=== PATIENT | female | born 1955 | race Caucasian/White ===

== ENCOUNTER → 2019-03-21 | Outpatient (CLI) | payer MEDICARE, BC ==
[~2019-03-21] MED LIST: CATHETER FLUSH 10 ML SYR IV PRN; HOLD METFORMIN - RECEIVED CONTRAST 20 ML VIAL IV SCH; IOHEXOL 350 MG/ML 100 ML (OMNIPAQUE 350) VIAL IV ONE; NS 100 ML (IVPB) BAG IV ONE
--- NOTE | 2019-03-21 13:06 | Diagnostic Imaging Report ---
PROCEDURE: CT chest with contrast only. TECHNIQUE: Multiple contiguous axial images were obtained through the chest after administration of intravenous contrast. Auto Exposure Controls were utilized during the CT exam to meet ALARA standards for radiation dose reduction. INDICATION: Pulmonary fibrosis and cough. COMPARISON: No prior studies are available for comparison. FINDINGS: No axillary lymphadenopathy is detected. No mediastinal or hilar lymphadenopathy is identified. No pericardial or pleural fluid is detected. There are centrilobular emphysematous changes throughout both lungs. There appear to be some interstitial changes in subpleural locations of bilateral lower lobes, which may represent fibrotic scarring. No parenchymal mass, nodule, or infiltrate is seen. The upper abdomen is unremarkable. IMPRESSION: 1. Centrilobular emphysematous changes with basilar interstitial changes perhaps owing to scarring. No parenchymal mass or thoracic lymphadenopathy is detected. Dictated by: Dictated on workstation # [id number]
== END ==
LOC: RAD 12:13
PROVIDERS: ATTEND Nurse Practitioner Family
DX: J43.2 Centrilobular emphysema (principal); J30.9 Allergic rhinitis, unspecified; J84.10 Pulmonary fibrosis, unspecified; F17.201 Nicotine dependence, unspecified, in remission
CPT/HCPCS: 71260

== ENCOUNTER → 2019-09-06 | Outpatient (CLI) | payer MEDICARE, BC ==
--- NOTE | 2019-09-23 13:14 | Diagnostic Imaging Report ---
INDICATION: Routine screening. COMPARISON: Comparison is made with prior mammogram of 07/20/2015. 2-D and 3-D bilateral screening mammography was performed. The current study was also evaluated with a Computer Aided Detection (CAD) system. 3-D tomosynthesis was also performed and reviewed. FINDINGS: Scattered fibroglandular densities are identified bilaterally. Overall parenchymal pattern is stable. Slightly nodular density in the outer left breast at mid to posterior depth appears to be stable. There are benign calcifications bilaterally. No spiculated mass or malignant-appearing microcalcifications are seen. Axillae are unremarkable. IMPRESSION: No mammographic features suspicious for malignancy are identified. ACR BI-RADS Category 2: Benign findings. Result letter will be mailed to the patient. Note: At least 10% of breast cancer is not imaged by mammography. Dictated by: Dictated on workstation # [id number]
== END ==
LOC: RAD 15:08
PROVIDERS: ATTEND Internal Medicine
DX: Z12.31 Encounter for screening mammogram for malignant neoplasm of breast (principal)
CPT/HCPCS: 77067

== ENCOUNTER 2023-06-08 12:07 | Inpatient (IN) | payer MEDICARE, BC ==
[~2023-06-08] VITALS: Ht 170.1 cm; Wt 87.2 kg
[~2023-06-08 12:07] MED LIST changes: +ACETAMINOPHEN 325 MG TABLET PO PRN; +ALPRAZolam 0.25 MG TABLET PO PRN; +BISACODYL 10 MG SUPPOSITORY PR PRN; +CALCIUM CARBONATE 500 MG CHEW TABLET PO PRN; -CATHETER FLUSH 10 ML SYR IV PRN; +DOCUSATE SODIUM 100 MG CAPSULE PO PRN; -HOLD METFORMIN - RECEIVED CONTRAST 20 ML VIAL IV SCH; -IOHEXOL 350 MG/ML 100 ML (OMNIPAQUE 350) VIAL IV ONE; +LACTULOSE SYRUP 10GM/15ML 30ML UDC PO PRN; +LOPERAMIDE 2 MG (IMODIUM) TABLET PO PRN; -NS 100 ML (IVPB) BAG IV ONE; +ONDANSETRON 4 MG (ZOFRAN) ORAL DISSOLVE TAB PO PRN; +Sodium Phosphate/Sodium Biphosphate ADULT enema PR PRN; +diphenhydrAMINE 25 MG TABLET PO PRN; +guaiFENesin/CODEINE 10ML UDC PO PRN
[2023-06-08 12:45] VITALS: BP 122/57
--- NOTE | 2023-06-08 13:27 | Physical Therapy Evaluation ---
PT Evaluation-General Medical Diagnosis Admission Date Jun 08, 2023 at 13:06 Medical Diagnosis: Pulmonary Fibrosis, AHRF Onset Date: May 28, 2023 Therapy Diagnosis Therapy Diagnosis: Decreased functional activity tolerance; Decreased strength Precautions Precautions/Isolations: Fall Prevention, Standard Precautions Weight Bear Status Right Lower Extremity: Right Full Weight Bearing Left Lower Extremity: Left Full Weight Bearing Referral Physician: Kimberley Reason for Referral: Evaluation/Treatment Medical History Additional Medical History AHRF, LLL PNA s/p meropenem and azithromycin Current History Pt admitted to hospital on 05/28/23 for SOB and low O2 levels; Admitted to ARU on 06/08/23 Reviewed History: Yes Social History Home: Single Level Current Living Status: Significant Other Entry Into Home: Stairs Without Railing PT Steps Into Home: 2 PT Steps Inside Home: 3 Pt lives in a single level home with her , with 2 steps to enter with no HR and 3 steps in the home. Tub shower, regular toilet, no GBs, no SC Prior Prior Level of Function SCALE: Activities may be completed with or without assistive devices. 1-Yrvhdhxinv-yiamirl completes the activity by him/herself with no assistance from a helper. 5-Set-up or Clean-up Assistance-helper sets up or cleans up; patient completes activity. [place] assists only prior to or following the activity. 4-Supervision or Touching Assistance-helper provides verbal cues and/or touching/steadying and/or contact guard assistance as patient completes activity. Assistance may be provided throughout the activity or intermittently. 3-Partial/Moderate Assistance-helper does LESS THAN HALF the effort. [place] lifts, holds or supports trunk or limbs, but provides less than half the effort. 2-Substantial/Maximal Assistance-helper does MORE THAN HALF the effort. [place] lifts or holds trunk or limbs and provides more than half the effort. 8-Hjwfnjnzi-yazzxl does ALL the effort. Patient does none of the effort to complete the activity. Or, the assistance of 2 or more helpers is required for the patient to complete the activity. If activity was not attempted, code reason: 7-Patient Refused. 9-Not Applicable-not attempted and the patient did not perform the activity before the current illness, exacerbation or injury. 10-Not Attempted due to Environmental Limitations-(lack of equipment, weather restraints, etc.). 88-Not Attempted due to Medical Conditions or Safety Concerns. Bed Mobility: 6 Transfers (B,C,W/C): 6 Gait: 6 Stairs: 6 Wheelchair Mobility: 9 Indoor Mobility (Ambulation): Independent Stairs: Independent Prior Devices Use: None At PLOF, pt was Ind with no AD, driving, cooking, cleaning. No AD at home. 1-3L O2 at PLOF PT Evaluation-Current Subjective Pt is agreeable to PT Pain Numeric Pain Scale: 8 Location Body Site: Chest Section J - Health Conditions 1. Rarely or not at all 2. Occasionally 3. Frequently 4. Almost constantly 8. Unable to answer Pain Effect on Sleep: 3 Pain Interference with Therapy: 3 Pain Interference w/Day-to-Day: 3 Pt/Family Goals Safely return home Objective Patient Orientation: Person, Place, Time, Situation Attachments: Oxygen (10L ) ROM/Strength ROM Upper Extremities See OT eval ROM Lower Extremities WFL Strength Upper Extremities See OT note Strength Lower Extremities B LE MMT = 4-/5 grossly Integumentary/Posture Integumentary See nurses note Bowel Incontinence: No Bladder Incontinence: No Sensory Vision: Wears Glasses Hearing: Functional Hand Dominance: Right Sensation Right Upper Extremit: Intact Sensation Left Upper Extremity: Intact Sensation Right Lower Extremit: Intact Sensation Left Lower Extremity: Intact Transfers Roll Left & Right (QC): 4 (SBA ) Sit to Lying (QC): 4 (SBA ) Lying to Sitting/Side of Bed(Q: 4 (SBA ) Sit to Stand (QC): 4 (SBA ) Chair/Zpw-jh-Luyvu Xfer(QC): 4 (SBA ) Toilet Transfer (QC): 4 (SBA ) Car Transfer (QC): 4 (SBA ) Gait Does the Patient Walk?: Yes Mode of Locomotion: Walk Anticipated Mode of Locomotion: Walk Walk 10 feet (QC): 4 (CGA) Walk 50 ft with 2 Turns(QC): 4 (CGA ) Walk 150 ft (QC): 88 (O2 dropped below 80% on 10L ) Walking 10ft/uneven surface-QC: 4 (CGA ) Gait Assistive Device: None Wheelchair Training Does the Pt Use a Wheelchair?: No Wheel 50 ft with 2 turns (QC): 9 Wheel 150 ft (QC): 9 Type of Wheelchair: N/A Stairs #of Steps: 5 1 Step (curb) (QC): 4 (CGA ) 4 Steps (QC): 4 (CGA ) 12 Steps (QC): 88 Balance Sitting Static: Normal Sitting Dynamic: Normal Standing Static: Good Standing Dynamic: Good Picking up an Object (QC): 4 (CGA/SBA ) Special Test Comments KU standing balance score = 4/5 (goal = 5/5) Treatment PT eval completed Assessment/Needs Pt tolerated PT well, but O2 dropped to 75% with walking/activity (rebounded quickly after a seated rest-break) Rehab Potential: Good Post Rehab Potential-Barriers: SOB; Endurance Equipment Needs SC, GB PT Dish Room Worker Goals Dish Room Worker Goals PT Dish Room Worker Goals Time Frame: Jun 22, 2023 Roll Left to Right (QC): 6 (Pt will be Ind with functional mobility, in order to safely return home with spouse. ) Sit to Lying (QC): 6 (Pt will be Ind with functional mobility, in order to safely return home with spouse. ) Lying-Sitting on Side/Bed(QC): 6 (Pt will be Ind with functional mobility, in order to safely return home with spouse. ) Sit to Stand (QC): 6 (Pt will be Ind with functional mobility, in order to safely return home with spouse. ) Chair/Eis-hx-Kcjxm Xfer(QC): 6 (Pt will be Ind with functional mobility, in order to safely return home with spouse. ) Toilet/Commode Transfer (QC): 6 (Pt will be Ind with functional mobility, in order to safely return home with spouse. ) Car Transfer (QC): 6 (Pt will be Ind with functional mobility, in order to safely return home with spouse. ) Does the Patient Walk: Yes Walk 10 feet (QC): 6 (Pt will be Ind with functional mobility, in order to safely return home with spouse. ) Walk 10ft-Uneven Surface(QC): 6 (Pt will be Ind with functional mobility, in order to safely return home with spouse. ) Walk 50ft with 2 Turns (QC): 6 (Pt will be Ind with functional mobility, in order to safely return home with spouse. ) Walk 150 ft (QC): 6 (Pt will be Ind with functional mobility, in order to safe ly return home with spouse. ) Does the Pt use WC or Scooter?: No Wheel 50 feet with 2 turns (QC: 9 Type: N/A Wheel 150 feet: 9 Type: N/A 1 Step (curb) (QC): 6 (Pt will be Ind with functional mobility, in order to safely return home with spouse. ) 4 Steps (QC): 6 (Pt will be Ind with functional mobility, in order to safely return home with spouse. ) 12 Steps (QC): 6 (Pt will be Ind with functional mobility, in order to safely return home with spouse. ) Picking up an Object (QC): 6 (Pt will be Ind with functional mobility, in order to safely return home with spouse. ) KU standing balance goal = 5/5 PT Plan Problem List Problem List: Activity Tolerance, Functional Strength, Safety, Balance, Gait, Transfer, Bed Mobility Treatment/Plan Treatment Plan: Continue Plan of Care Treatment Plan: Bed Mobility, Concurrent Therapy, Education, Functional A ctivity Wil, Functional Strength, Group Therapy, Gait, Safety, Therapeutic Exercise, Transfers Treatment Duration: Jun 22, 2023 Frequency: At least 5 of 7 days/Wk (IRF) Estimated Hrs Per Day: 2 hours per day Patient and/or Family Agrees t: Yes Safety Risks/Education Patient Education: Gait Training, Transfer Techniques, Steps, Safety Issues Teaching Recipient: Patient Teaching Methods: Demonstration, Discussion Response to Teaching: Verbalize Understanding, Return Demonstration, Reinforcement Needed Discharge Recommendations Therapy Discharge Recommendati: Home & Family Equpiment Recommendations-D/C: Shower Chair Discharge Status/Home Program Cont per POC Barriers to Progress SOB; Endurance Target Placement Home with spouse Time Time In: 1310 Time Out: 1325 DATE: Jun 08, 2023 Total Billed Treatment Time: 15 Total Billed Treatment 15 min CASSY MOORE PT Jun 08, 2023 13:27
[2023-06-08] MEDS ORDERED: MULT-1136 PO (13:55)
[2023-06-08] MEDS ORDERED: MONT-47 PO (13:55)
[2023-06-08] MEDS ORDERED: ALB0.5V INH ×2 (13:55)
[2023-06-08] MEDS ORDERED: IBUP-1773 PO (13:55)
[2023-06-08] MEDS ORDERED: CYAN-41 PO (13:55)
[2023-06-08] MEDS ORDERED: ENOX40DI8 SQ (13:55)
[2023-06-08] MEDS ORDERED: ACET325T38 PO (13:55)
[2023-06-08] MEDS ORDERED: GUAI5SYR PO (13:55)
[2023-06-08] MEDS ORDERED: PRD20T PO (13:55)
[2023-06-08] MEDS ORDERED: ALPR0.5T7 PO (13:55)
[2023-06-08] MEDS ORDERED: FLUC100T10 PO (13:55)
[2023-06-08] MEDS ORDERED: NYST1000 PO (13:55)
[2023-06-08] MEDS ORDERED: ATOR20TA66 PO (13:55)
[2023-06-08] MEDS ORDERED: CHOL500050 PO (13:55)
[2023-06-08] MEDS ORDERED: OMEG100032 PO (13:55)
[2023-06-08] MEDS ORDERED: GUAI600T43 PO (13:55)
[2023-06-08] MEDS ORDERED: LACT-242 PO (13:55)
[2023-06-08] MEDS ORDERED: ONDA2VIA6C IV (13:55)
[2023-06-08] MEDS ORDERED: BACL10TA PO (13:55)
[2023-06-08] MEDS ORDERED: PANT40TA52 PO (13:55)
[2023-06-08] MEDS ORDERED: CARB15DR OU (13:55)
[2023-06-08] MEDS ORDERED: ACHD5005 PO (13:55)
[2023-06-08] MEDS ORDERED: OMEP40CA6 PO (13:55)
[2023-06-08] MEDS ORDERED: SERT-413 PO (13:55)
--- NOTE | 2023-06-08 14:10 | Occupational Therapy Eval ---
OT Evaluation-General/PLF Medical Diagnosis Admission Date Jun 08, 2023 at 13:06 Medical Diagnosis: Pulmonary fibrosis, AHRF Onset Date: May 28, 2023 Therapy Diagnosis Therapy Diagnosis: SOA, low endurance Precautions Precautions/Isolations: Fall Prevention, Standard Precautions Referral Physician: Kimberley Referral Reason: Activity Tolerance, Self Care, Evaluation/Treatment Medical History Additional Medical History LLL, pneumonia Current History PLOF 02 use 1-3 L NC, currently 8-10 L NC w/ith 02 sats activity at 75-93 % at rest Reviewed History: Yes Social History Home: Single Level Current Living Status: Significant Other Entry Into Home: Stairs Without Railing Steps Into Home: 2 Steps Inside Home: 3 ADL-Prior Level of Function SCALE: Activities may be completed with or without assistive devices. 2-Rzfdxderky-pduzbot completes the activity by him/herself with no assistance from a helper. 5-Set-up or Clean-up Assistance-helper sets up or cleans up; patient completes activity. [place] assists only prior to or following the activity. 4-Supervision or Touching Assistance-helper provides verbal cues and/or touching/steadying and/or contact guard assistance as patient completes activity. Assistance may be provided throughout the activity or intermittently. 3-Partial/Moderate Assistance-helper does LESS THAN HALF the effort. [place] lifts, holds or supports trunk or limbs, but provides less than half the effort. 2-Substantial/Maximal Assistance-helper does MORE THAN HALF the effort. [place] lifts or holds trunk or limbs and provides more than half the effort. 9-Sqmyxpkwq-taoltx does ALL the effort. Patient does none of the effort to complete the activity. Or, the assistance of 2 or more helpers is required for the patient to complete the activity. If activity was not attempted, code reason: 7-Patient Refused. 9-Not Applicable-not attempted and the patient did not perform the activity before the current illness, exacerbation or injury. 10-Not Attempted due to Environmental Limitations-(lack of equipment, weather restraints, etc.). 88-Not Attempted due to Medical Conditions or Safety Concerns. 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 Drive Self: Yes OT Current Status Subjective Positively agreeable to OT Pain Numeric Pain Scale: 0-No Pain Mental Status/Objective Patient Orientation: Person, Place, Time, Situation Attachments: Oxygen (8-10 L NC) Current Glasses/Contacts: Yes Hearing Aids: No Dentures/Partials: No Hand Dominance: Right Upper Extremity ROM BUE ROM WNLs Upper Extremity Coordination INTACT Upper Extremity Sensation INTACT Upper Extremity Strength WFLs, does not sustain strength w/ activity d/t SOA ADL-Treatment ADL-Current Monitor 02 levels and 02 feng cart w/ mobility Eating (QC): 6 (Educated to order meals form menu) Oral Hygiene (QC): 5 (SBA standing at lavatory) Shower/Bathe Self (QC): 88 Upper Body Dressing (QC): 5 Lower Body Dressing (QC): 5 On/Off Footwear (QC): 5 Toileting Hygiene (QC): 5 Education OT Patient Education: Correct positioning, Energy conservation, Modified ADL techniques, Progress toward Goal/Update tx plan, Purpose of tx/functional activities, Reviewed precautions, Rehab process, Safety issues, Transfer techniques, Use of adapted equipment Teaching Recipient: Patient Teaching Methods: Demonstration, Discussion Response to Teaching: Verbalize Understanding, Reinforcement Needed BIMS CAM BIMS Expression of Ideas and Wants: Without Difficulty Understanding Verbal Content: Understands Brief Interview/Mental Status: Yes IRF ASIF BIMS: IRF ASIF BIMS Response (Comments) Value Repitition of Three Words Three 3 Recalls Socks Yes, No Cue Required 2 Recalls Blue Yes, No Cue Required 2 Recalls Bed Yes, No Cue Required 2 Year Correct 3 Month Accurate Within 5 Days 2 Day Correct 1 Total 15 Patient Normally Able to Recal: Current Session, Location of own room, Staff Names and faces, That he/she in a [facility] Should Staff Asses. Mental St.: No CAM Mental Status Change/Baseline: 0 Inattention: 0 Disorganized thinkin Altered level of consciousness: 0 OT Short Term Goals Short Term Goals Time Frame: Jun 12, 2023 Eatin Oral hygiene: 6 Putting on/taking off footwear: 6 OT Mcfp Goals Mcfp Goals Time Frame: Jun 16, 2023 Eating (QC): 6 Oral Hygiene (QC): 6 Toileting Hygiene (QC): 6 Shower/Bathe Self (QC): 6 Upper Body Dressing (QC): 6 Lower Body Dressing (QC): 6 On/Off Footwear (QC): 6 1=Demonstrate adherence to instructed precautions during ADL tasks. 2=Patient will verbalize/demonstrate understanding of assistive dev ices/modifications for ADL. 3=Patient will improve strength/tolerance for activity to enable patient to perform ADL's. OT Education/Plan Problem List/Assessment Assessment: Decreased Activ Tolerance Discharge Recommendations Plan/Recommendations: Continue POC Treatment Plan/Plan of Care Treatment,Training & Education: Yes Patient would benefit from OT for education, treatment and training to promote independence in ADL's, mobility, safety and/or upper extremity function for ADL's. Plan of Care: ADL Retraining, Concurrent Therapy, Functional Mobility, Group Exercise/Act as Ind, UE Funct Exercise/Act, UE Neuromus Re-Ed/Coord Treatment Duration: Jun 16, 2023 Frequency: At least 5 of 7 days/Wk (IRF) Estimated Hrs Per Day: 1 hour per day Agreement: Yes Rehab Potential: Good UP in recliner ordering meal Time Start Time: 13:25 Stop Time: 14:00 DATE: Jun 08, 2023 Total Time Billed (hr/min): 35 Billed Treatment Time EVM 35 min NENA CAMARA OT Jun 08, 2023 14:10
--- NOTE | 2023-06-08 14:53 | PM&R Post Admission Assessment ---
PM&R HP Date of Visit: Jun 08, 2023 Time of Visit: 13:30 History of Present Illness Chief complaint: Debility from pulmonary fibrosis and exacerbation of COPD HPI: This is a 68-year-old female clinic patient of [facility] with a history of pulmonary fibrosis managed at maintained on oxygen supplement at home who presents from [facility] swing bed following a 7-day hospital course on Vapotherm of 35 L at 65% due to exacerbation of COPD due to pneumonia. She completed meropenem and azithromycin at [facility] [place]. She remains on 8 L of oxygen so we will have a goal of decreasing oxygen to baseline home dose and decreasing steroids. CC: Acute on chronic hypoxic respiratory failure & respiratory distress HPI: 68-year-old female patient presents to rehab with history of pulmonary fibrosis and pulmonary HTN. Woke up coughing two weekends ago and was having trouble with keeping O2 saturation up. Was diagnosed with left sided pneumonia and has been treated with antibiotics and steroids. Patient has been experiencing back pain due to the pneumonia and coughing. Breathing is still difficult but patient is determined to get better. PMH: Pulmonary fibrosis. Left humerus fracture following a fall. Hyperlipidemia. GERD. Depression. Vitamin D deficiency. Fatty liver. PSH: Appendectomy, cholecystectomy, bowel resection. ALL: Penicillins, sulfa, cephalexin, ciprofloxacin, clindamycin, demeclocycline, erythromycin, lidocaine, meperidine, morphine, sulfamethoxazole, terbinafine, trimethoprim. MED: Tagamet 200 mg daily, Silvina 180 mg daily, Prednisone 10 mg daily, Proair two puffs q four prn, Fish oil, [place]-3 fatty acids daily, multivitamin daily, vitamin D 1,000 units daily, vitamin B12 1,000 mcg daily, Omeprazole 20 mg BID daily, Atorvastatin 20 mg daily, Sertraline 50 mg daily, Anoro Ellipta 62.5-25 daily, Montelukast 10 mg daily. SH: Former smoker, no alcohol. 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 FH: Grandmother had pulmonary fibrosis, brother had basal cell carcinoma. ROS Constitutional: No weight loss, no chills HEENT: No ear pain, no neck pain Resp: Shortness of breath, cough CV: No chest pain, no palpitations GI: No constipation, no abd pain : No dysuria, no polyuria MSK: Back pain, no joint pain Psych/neuro: No unsteady gait, no anxiety Exam General: Shortness of breath, chronically ill, not in acute distress. Pleasant and very cooperative. HEENT: No lymphadenopathy of mandibular, submental, and anterior cervical lymph nodes bilaterally. Bilateral pupils with intact light reflex. No icterus or conjunctivitis. Moist mucous membranes. No cobblestoning of posterior pharynx. Neck: Normal range of motion, no rigidity, no pain, no masses CV: Regular rate and rhythm, no murmurs or gallops. No elevated JVP. No displacement or enlargement of PMI. No carotid bruits. Carotid pulse +2 bilaterally. No edema. Normal capillary refill. Resp: Lungs clear to auscultation bilaterally. No rales, rhonchi, or wheezing. No usage of accessory muscles. No cyanosis or clubbing. Abd: Normoactive bowel sounds and nontender in all four quadrants. No rebound tenderness. MSK: Posterior back pain that is tender to palpation on the left side. Tenderness runs from left T9-L4 paraspinal muscles and radiates out to the left. Extrem: Normal range of motion and no tenderness. Radial pulse and posterior tibial pulse +2 bilaterally. Neuro: Oriented & alert times 4. Cranial nerves 2-12 intact bilaterally. Rapid alternating hand movements performed adequately. No abnormal gait. Assessment Acute on chronic hypoxic respiratory failure & respiratory distress on 15 liters of oxygen Left lower lobe pneumonia Elevated lactic acid due to hypoxia & respiratory distress Leukocytosis Pulmonary fibrosis Left humerus fracture following fall Hyperlipidemia Depression Vitamin D deficiency Fatty liver Pulmonary HTN on echocardiogram, 50-55 Plan Continue PT & OT Continue to titrate prednisone slowly Supportive care Monitor closely Past Oqhftrm-Cgemux-Qfyalo Hx Past Med/Social Hx: Reviewed Nursing Past Med/Soc Hx, Reviewed and Corrections made Patient Social History Marrital Status: Employed/Student: retired Alcohol Use: Denies Use Smoking Status: Former Smoker Past Medical History Respiratory: COPD, Emphysema, Pneumonia Currently Using CPAP: No Currently Using BIPAP: No Cardiac: High Cholesterol, Hypertension Gastrointestinal: Gastroesophageal Reflux Musculoskeletal: Arthritis Prior Level of Function Bed Mobility: 6 Transfers: 6 Gait: 6 Stairs: 6 Wheelchair Mobility: 9 Indoor Mobility (Ambulation): Independent Stairs: Independent Prior Devices Use: None Self Care: Independent Functional Cognition: Independent 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 Drive Self: Yes Current Level of Fuctioning Roll Left to Right: 4 (SBA ) Sit to Lyin (SBA ) Lying to Sitting/Side of Bed: 4 (SBA ) Sit to Stand: 4 (SBA ) Chair/Lvg-eo-Cnqfu Xfer: 4 (SBA ) Does the Pt Use a Wheelchair: No Wheel 50 ft with 2 turns: 9 Wheel 150 ft: 9 Type of Wheelchair: N/A Eatin (Educated to order meals form menu) Oral Hygiene: 5 (SBA standing at lavatory) Shower/Bathe Self: 88 Upper Body Dressin Lower Body Dressin On/Off Footwear: 5 Toileting Hygiene: 5 PM&R Allergy/Meds/Data Review Allergies Coded Allergies: Penicillins (Verified Allergy, Unknown, 06/08/23) Sulfa (Sulfonamide Antibiotics) (Verified Allergy, Unknown, 06/08/23) cephalexin (Verified Allergy, Unknown, 06/08/23) ciprofloxacin (Verified Allergy, Unknown, 06/08/23) clindamycin (Verified Allergy, Unknown, 06/08/23) demeclocycline (Verified Allergy, Unknown, 06/08/23) erythromycin base (Verified Allergy, Unknown, 06/08/23) lidocaine (Verified Allergy, Unknown, 06/08/23) meperidine (Verified Allergy, Unknown, 06/08/23) morphine (Verified Allergy, Unknown, 06/08/23) sulfamethoxazole (Verified Allergy, Unknown, 06/08/23) terbinafine (Verified Allergy, Unknown, 06/08/23) trimethoprim (Verified Allergy, Unknown, 06/08/23) Home Medications Scheduled Albuterol Sulfate (Albuterol Sulfate), 2.5 MG INH QID, (Reported) Atorvastatin Calcium (Atorvastatin Calcium), 20 MG PO DAILY, (Reported) Cholecalciferol (Vitamin D3) (Vitamin D3), 125 MCG PO DAILY, (Reported) Cyanocobalamin (Vitamin B-12) (Vitamin B-12), 1,000 MCG PO DAILY, (Reported) Enoxaparin Sodium (Enoxaparin Sodium), 40 MG SQ DAILY, (Reported) Fluconazole (Fluconazole), 100 MG PO DAILY, (Reported) Guaifenesin (Mucinex), 600 MG PO BID, (Reported) Lactobacillus Acidophilus (Acidophilus Probiotic), 1 EACH PO QID, (Reported) Montelukast Sodium (Singulair), 10 MG PO DAILY, (Reported) Multivitamin (Multivitamin), 1 EACH PO DAILY, (Reported) Nystatin (Nystatin), 1 ML PO QID, (Reported) [place]-3/Dha/Epa/Fish Oil (Fish Oil 1,000 mg Softgel), 1,000 MG PO DAILY, (Reported) Omeprazole (Omeprazole), 40 MG PO DAILY, (Reported) Pantoprazole Sodium (Pantoprazole Sodium), 40 MG PO DAILY, (Reported) Prednisone (Prednisone), 60 MG PO DAILY, (Reported) Sertraline HCl (Sertraline HCl), 50 MG PO HS, (Reported) Scheduled PRN Acetaminophen (Tylenol), 650 MG PO Q6H PRN for PAIN-MILD (1-4), (Reported) Albuterol Sulfate (Albuterol Sulfate), 2.5 MG INH Q4H PRN for SHORTNESS OF BREATH, (Reported) Alprazolam (Alprazolam), 0.5 MG PO EVERY 3 HOUR PRN for ANXIETY, (Reported) Baclofen (Baclofen), 10 MG PO Q4H PRN for MUSCLE SPASMS, (Reported) Carboxymethylcellulose Sodium (Refresh Tears), 1 DROP OU QID PRN for DRY EYES, (Reported) Guaifenesin/Dextromethorphan (Guaifenesin Dm Syrup), 5 ML PO Q6H PRN for COUGH, (Reported) Hydrocodone/Acetaminophen (Hydrocodone-Acetamin 5-325 mg), 1 TAB PO Q6H PRN for PAIN-MODERATE (5-7), (Reported) Ibuprofen (Ibuprofen), 600 MG PO Q6H PRN for PAIN-MILD (1-4), (Reported) Ondansetron HCl (Ondansetron HCl), 4 MG IV Q6H PRN for NAUSEA/VOMITING-1ST LINE, (Reported) Current Medications Current Medications Reviewed Review of Systems Constitutional: see HPI, malaise, weakness EENTM: no symptoms reported Respiratory: dyspnea on exertion, short of breath, wheezing Cardiovascular: no symptoms reported Gastrointestinal: no symptoms reported Genitourinary: no symptoms reported Musculoskeletal: back pain Skin: no symptoms reported Psychiatric/Neurological: Anxiety, Depressed All Other Systems Reviewed Negative Unless Noted: Yes Physical Exam Physical Exam Vital Signs Vital Signs - First Documented 8/3/23 12:45 Temp 36.1 Pulse 61 Resp 20 B/P (MAP) 122/57 (78) Pulse Ox 92 O2 Delivery Nasal Cannula O2 Flow Rate 10.00 Capillary Refill : Height, Weight, BMI Height: '" Weight: lbs. oz. kg; 30.24 BMI Method: General Appearance: No Apparent Distress, WD/WN, Chronically ill Eyes: Bilateral Eye Normal Inspection, Bilateral Eye PERRL HEENT: PERRL/EOMI, Normal ENT Inspection, Pharynx Normal Neck: Full Range of Motion, Normal Inspection, Non Tender, Supple, Carotid Bruit Respiratory: Chest Non Tender, No Accessory Muscle Use, No Respiratory Distress, Decreased Breath Sounds Cardiovascular: Regular Rate, Rhythm, No Edema, No Gallop, No JVD, No Murmur, Normal Peripheral Pulses Gastrointestinal: Normal Bowel Sounds, No Organomegaly, No Pulsatile Mass, Non Tender, Soft Back: Normal Inspection, No CVA Tenderness, No Vertebral Tenderness Extremity: Normal Capillary Refill, Normal Inspection, Normal Range of Motion, Non Tender, No Calf Tenderness, No Pedal Edema Neurologic/Psychiatric: Alert, Oriented x3, Normal 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, 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 Norm as Tested, Abnormal Gait, Depressed Affect, Motor Weakness (Generalized 3/5) Skin: Normal Color, Warm/Dry Lymphatic: No Adenopathy PM&R Medical Assessment & Plan REHAB/MEDICAL ASSESSMENT AND PLAN: REHAB IMPAIRMENT GROUP: Debility following pulmonary failure ETIOLOGIC DIAGNOSIS: pulmonary fibrosis The comorbidities that impact the patients function and/or functional outcome by: severe pulmonary fibrosis and stage, severe weakness from critical illness REHAB PLAN: The patient is being admitted to our comprehensive inpatient rehabilitation facility and can tolerate the intensity of service consisting of at least: 180 minutes of therapy a day, 5 out of 7 days a week Rehab treatment will consist of: PT and OT will focus on regaining function with use of assistive devices in order to gain strength and return back to ambulatory status while weaning oxygen The patient/family has a good understanding of our discharge process and will benefit from an interdisciplinary inpatient rehabilitation program. The patient has potential to make improvement and is in need of at least two of the following multidisciplinary therapies including but not limited to physical, occupational, speech, and prosthetics and orthotics. Additionally the patient will need services from respiratory, nutritional services, wound care, psychology, etc. (Customize this to each patient). Given the patients complex condition and risk of further medical complications, rehabilitation services cannot be safely or effectively provided at a lower level of care such as a halfway facility. BARRIERS TO DISCHARGE: severe hypoxia with exertion ESTIMATED LOS: 7 days DISPOSITION: home with spouse RELEVANT CHANGES SINCE PREADMISSION SCREENING: I have compared the patients medical and functional status at the time of the preadmission screening and there are: no changes PROGNOSIS: fair REHABILITATION GOALS: 1. PT and OT will focus on regaining function with use of assistive devices in order to gain strength and return back to ambulatory status while weaning oxygen All the above goals were reviewed with the patient and he/she is in agreement. By signing this document, I acknowledge that I have personally performed a full physical examination on this patient within 24 hours of admission to this inpatient rehabilitation facility and have determined the patient to be able to tolerate the above course of treatment at an intensive level for a reasonable period of time. I will be completing a detailed individualized Plan of Care for this patient by day #4 of the patients stay based upon the Preadmission Screen, the Post-Admission Evaluation, and the therapy evaluations. Admission Dx/Comorbidities: (1) Respiratory failure ICD Codes: J96.90 - Respiratory failure, unspecified, unspecified whether with hypoxia or hypercapnia (2) Pulmonary fibrosis ICD Codes: J84.10 - Pulmonary fibrosis, unspecified Assessment/Plan Assessment and Plan Assess & Plan/Chief Complaint Assessment Acute on chronic hypoxic respiratory failure & respiratory distress on 8 liters of oxygen s/p left lower lobe pneumonia s/p elevated lactic acid due to hypoxia & respiratory distress s/p Leukocytosis Pulmonary fibrosis h/o left humerus fracture following fall Hyperlipidemia Depression Vitamin D deficiency Fatty liver Pulmonary HTN on echocardiogram, 50-55mmHg Plan: Slowly decrease prednisone Slowly wean oxygen Aggressive rehab Monitor oxygen level ALYSHA POON DO Jun 08, 2023 14:53
[2023-06-08] MEDS ORDERED: IBUPROFEN 600 MG TABLET PO PRN (15:00)
[2023-06-08] MEDS ORDERED: ACETAMINOPHEN 325 MG TABLET PO PRN (15:00)
[2023-06-08] MEDS ORDERED: RT-ALBUTEROL SULF 2.5 MG/3 ML PRE-MIX VIAL INH PRN (15:00)
[2023-06-08] MEDS ORDERED: ONDANSETRON 4 MG/2 ML (SDV) Z0FRAN IV PRN (15:30)
[2023-06-08] MEDS ORDERED: ARTIFICAL TEARS Ophth solution 0.4 ML UNIT DOSE OU PRN (15:30)
--- NOTE | 2023-06-08 15:37 | Physical Therapy Daily Note ---
PT Daily Note-Current Subjective Pt was in room in recliner and willing for therap. PT/OT Co treat from [id number] for 65 mins due to skill level of 2 clinician required for safety, prevents falls due to weakness and lack of stamina pt currently has. PT focused on VC for safety with ADL and any upper body movement while PT focused on ambulation, xie sfers and gross overall movement. Pain Section J - Health Conditions 1. Rarely or not at all 2. Occasionally 3. Frequently 4. Almost constantly 8. Unable to answer Pain Effect on Sleep: 3 Pain Interference with Therapy: 3 Pain Interference w/Day-to-Day: 3 Mental Status Patient Orientation: Person, Place, Time, Situation Transfers SCALE: Activities may be completed with or without assistive devices. 9-Apptxkpwui-npvsaxh completes the activity by him/herself with no assistance from a helper. 5-Set-up or Clean-up Assistance-helper sets up or cleans up; patient completes activity. [place] assists only prior to or following the activity. 4-Supervision or Touching Assistance-helper provides verbal cues and/or touching/steadying and/or contact guard assistance as patient completes activity. Assistance may be provided throughout the activity or intermittently. 3-Partial/Moderate Assistance-helper does LESS THAN HALF the effort. [place] lifts, holds or supports trunk or limbs, but provides less than half the effort. 2-Substantial/Maximal Assistance-helper does MORE THAN HALF the effort. [place] lifts or holds trunk or limbs and provides more than half the effort. 2-Rryvwtgcs-qqrixe does ALL the effort. Patient does none of the effort to complete the activity. Or, the assistance of 2 or more helpers is required for the patient to complete the activity. If activity was not attempted, code reason: 7-Patient Refused. 9-Not Applicable-not attempted and the patient did not perform the activity before the current illness, exacerbation or injury. 10-Not Attempted due to Environmental Limitations-(lack of equipment, weather restraints, etc.). 88-Not Attempted due to Medical Conditions or Safety Concerns. Weight Bearing Right Lower Extremity: Right Full Weight Bearing Left Lower Extremity: Left Full Weight Bearing Treatments Pt is able to ambulate to and from the shower with SBA. pt is able to preform sitting shower with supervision and no LOB when preforming dynamic sitting or standing.pt does require monitored for low O2 and rest breaks to recover low O2 from low 80's to Low 90's. pt is aware when O2 becomes low and sill sit and rest on her own to increase O2 in take. Assessment Current Status: Good Progress PT Nursing Home Goals Nursing Home Goals PT Roller Pneumatic Goals Time Frame: Jun 22, 2023 Roll Left & Right (QC): 6 Sit to Lying (QC): 6 Lying-Sitting on Side/Bed(QC): 6 Sit to Stand (QC): 6 Chair/Brf-ey-Uzlkq Xfer(QC): 6 Toilet Transfer (QC): 6 Car Transfer (QC): 6 Does the Patient Walk: Yes Walk 10 feet (QC): 6 Walk 50ft with 2 Turns (QC): 6 Walk 150 ft (QC): 6 Walking 10ft on Uneven Surface: 6 1 Step (curb) (QC): 6 4 Steps (QC): 6 12 Steps (QC): 6 Picking up an Object (QC): 6 Wheel 50 feet with 2 turns (QC: 9 Type: N/A Wheel 150 feet: 9 Type: N/A PT Plan Treatment/Plan Treatment Plan: Continue Plan of Care Treatment Plan: Bed Mobility, Concurrent Therapy, Education, Functional Activity Wil, Functional Strength, Group Therapy, Gait, Safety, Therapeutic Exercise, Transfers Treatment Duration: Jun 22, 2023 Frequency: At least 5 of 7 days/Wk (IRF) Estimated Hrs Per Day: 2 hours per day Patient and/or Family Agrees t: Yes Time Time In: 1400 Time Out: 1505 DATE: Jun 08, 2023 Total Billed Treatment Time: 65 Total Billed Treatment 1 FA x 4 GT Anusha Benavidez FURNACE ERECTOR Jun 08, 2023 15:37
--- NOTE | 2023-06-08 16:10 | Occupational Ther Daily Note ---
OT Current Status-Daily Note Subjective Took over care from OTR/L. Monitoring pt's O2 sat levels, 81% after shower and came back up to 91% in 30 seconds. OT/PT cotreat ([id number]), skills of 2 clinicians required to monitor and educate pt on energy conservation during functional tasks. PT focusing on transfers and ambulation while OT focusing ADL s. Mental Status/Objective Patient Orientation: Person, Place, Time, Situation Attachments: Oxygen (10L) ADL-Treatment Pt agrees to shower. Pt is supervision/SBA for all mobility and ADLs due to monitoring O2 levels and safety. Pt is able to complete all ADLs by self with lengthy recovery breaks due to O2 levels below 90%. Pt sat 100% of the time to complete shower using grabbars, shower bench and hand held shower. Pt able to retrieve clothing and complete dressing without AD/AE. Sitting at sink, pt complete oral care with supervision. Independent with eating. After therapy, pt sitting in recliner eating lunch. Call light/phone in reach. All needs met. Therapy Code Descriptions/Definitions Functional [place] Measure: 0=Not Assessed/NA 4=Minimal Assistance 1=Total Assistance 5=Supervision or Setup 2=Maximal Assistance 6=Modified [place] 3=Moderate Assistance 7=Complete IndependenceSCALE: Activities may be completed with or without assistive devices. 8-Peauytbjmy-eoqrqpd completes the activity by him/herself with no assistance from a helper. 5-Set-up or Clean-up Assistance-helper sets up or cleans up; patient completes activity. [place] assists only prior to or following the activity. 4-Supervision or Touching Assistance-helper provides verbal cues and/or touching/steadying and/or contact guard assistance as patient completes activity. Assistance may be provided throughout the activity or intermittently. 3-Partial/Moderate Assistance-helper does LESS THAN HALF the effort. [place] lifts, holds or supports trunk or limbs, but provides less than half the effort. 2-Substantial/Maximal Assistance-helper does MORE THAN HALF the effort. [place] lifts or holds trunk or limbs and provides more than half the effort. 5-Vxzyjvnsn-vqhmtm does ALL the effort. Patient does none of the effort to complete the activity. Or, the assistance of 2 or more helpers is required for the patient to complete the activity. If activity was not attempted, code reason: 7-Patient Refused. 9-Not Applicable-not attempted and the patient did not perform the activity before the current illness, exacerbation or injury. 10-Not Attempted due to Environmental Limitations-(lack of equipment, weather restraints, etc.). 88-Not Attempted due to Medical Conditions or Safety Concerns. Eating (QC): 6 Oral Hygiene (QC): 4 Shower/Bathe Self (QC): 4 Upper Body Dressing (QC): 4 Lower Body Dressing (QC): 4 On/Off Footwear: 4 Toileting Hygiene (QC): 4 Toilet Transfer (QC): 4 OT Short Term Goals Short Term Goals Time Frame: Jun 12, 2023 Eatin Oral hygiene: 6 Putting on/taking off footwear: 6 OT Blindmaker Goals Blindmaker Goals Time Frame: Jun 16, 2023 Acute change in mental status: 0 Inattention: 0 Disorganized thinkin Altered level of consciousness: 0 Eating (QC): 6 Oral Hygiene (QC): 6 Toileting Hygiene (QC): 6 Shower/Bathe Self (QC): 6 Upper Body Dressing (QC): 6 Lower Body Dressing (QC): 6 On/Off Footwear (QC): 6 1=Demonstrate adherence to instructed precautions during ADL tasks. 2=Patient will verbalize/demonstrate understanding of assistive devices/modifications for ADL. 3=Patient will improve strength/tolerance for activity to enable patient to perform ADL's. OT Education/Plan Problem List/Assessment Assessment: Decreased Activ Tolerance, Impaired Self-Care Skills Discharge Recommendations Plan/Recommendations: Continue POC Treatment Plan/Plan of Care Patient would benefit from OT for education, treatment and training to promote independence in ADL's, mobility, safety and/or upper extremity function for ADL's. Plan of Care: ADL Retraining, Concurrent Therapy, Functional Mobility, Group Exercise/Act as Ind, UE Funct Exercise/Act, UE Neuromus Re-Ed/Coord Treatment Duration: Jun 16, 2023 Frequency: At least 5 of 7 days/Wk (IRF) Estimated Hrs Per Day: 1 hour per day Agreement: Yes Rehab Potential: Good Time Start Time: 14:00 Stop Time: 15:05 DATE: Jun 08, 2023 Total Time Billed (hr/min): 65 Billed Treatment Time 1 visit-ADL 4 (65 min) co-treat with PT 65 min BARON MATAMOROS Jun 08, 2023 16:10
[2023-06-08] MEDS ORDERED: RT-ALBUTEROL SULF 2.5 MG/3 ML PRE-MIX VIAL INH SCH (17:00)
[2023-06-08] MEDS: ALPRAZolam 0.5 MG TABLET PO PRN ×2 (17:10→23:35)
[2023-06-08] MEDS: LACTOBACILLUS ACIDOPHILUS (PROBIOTIC) CAPSULE PO SCH ×2 (17:10→21:00)
[2023-06-08] MEDS: NYSTATIN ORAL SUSP 5 ML UDC PO SCH ×2 (17:10→21:00)
--- NOTE | 2023-06-08 17:14 | Progress Note ---
MOUNIKA ROBERTS 06/08/23 1714: Progress Note CC: Acute on chronic hypoxic respiratory failure & respiratory distress HPI: 68-year-old female patient presents to rehab with history of pulmonary fibrosis and pulmonary HTN. Woke up coughing two weekends ago and was having trouble with keeping O2 saturation up. Was diagnosed with left sided pneumonia and has been treated with antibiotics and steroids. Patient has been experiencing back pain due to the pneumonia and coughing. Breathing is still difficult but patient is determined to get better. PMH: Pulmonary fibrosis. Left humerus fracture following a fall. Hyperlipidemia. GERD. Depression. Vitamin D deficiency. Fatty liver. PSH: Appendectomy, cholecystectomy, bowel resection. ALL: Penicillins, sulfa, cephalexin, ciprofloxacin, clindamycin, demeclocycline, erythromycin, lidocaine, meperidine, morphine, sulfamethoxazole, terbinafine, trimethoprim. MED: Tagamet 200 mg daily, Silvina 180 mg daily, Prednisone 10 mg daily, Proair two puffs q four prn, Fish oil, [place]-3 fatty acids daily, multivitamin daily, vitamin D 1,000 units daily, vitamin B12 1,000 mcg daily, Omeprazole 20 mg BID daily, Atorvastatin 20 mg daily, Sertraline 50 mg daily, Anoro Ellipta 62.5-25 daily, Montelukast 10 mg daily. SH: Former smoker, no alcohol. 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 FH: Grandmother had pulmonary fibrosis, brother had basal cell carcinoma. ROS Constitutional: No weight loss, no chills HEENT: No ear pain, no neck pain Resp: Shortness of breath, cough CV: No chest pain, no palpitations GI: No constipation, no abd pain : No dysuria, no polyuria MSK: Back pain, no joint pain Psych/neuro: No unsteady gait, no anxiety Exam General: Shortness of breath, chronically ill, not in acute distress. Pleasant and very cooperative. HEENT: No lymphadenopathy of mandibular, submental, and anterior cervical lymph nodes bilaterally. Bilateral pupils with intact light reflex. No icterus or conjunctivitis. Moist mucous membranes. No cobblestoning of posterior pharynx. Neck: Normal range of motion, no rigidity, no pain, no masses CV: Regular rate and rhythm, no murmurs or gallops. No elevated JVP. No displacement or enlargement of PMI. No carotid bruits. Carotid pulse +2 bilaterally. No edema. Normal capillary refill. Resp: Lungs clear to auscultation bilaterally. No rales, rhonchi, or wheezing. No usage of accessory muscles. No cyanosis or clubbing. Abd: Normoactive bowel sounds and nontender in all four quadrants. No rebound tenderness. MSK: Posterior back pain that is tender to palpation on the left side. Tenderness runs from left T9-L4 paraspinal muscles and radiates out to the left. Extrem: Normal range of motion and no tenderness. Radial pulse and posterior tibial pulse +2 bilaterally. Neuro: Oriented & alert times 4. Cranial nerves 2-12 intact bilaterally. Rapid alternating hand movements performed adequately. No abnormal gait. Assessment Acute on chronic hypoxic respiratory failure & respiratory distress on 15 liters of oxygen Left lower lobe pneumonia Elevated lactic acid due to hypoxia & respiratory distress Leukocytosis Pulmonary fibrosis Left humerus fracture following fall Hyperlipidemia Depression Vitamin D deficiency Fatty liver Pulmonary HTN on echocardiogram, 50-55 Plan Continue PT & OT Continue to titrate prednisone slowly Supportive care Monitor closely KATELYNN POON DO 06/08/232110: Supervisory-Addendum Brief Verification & Attestation Participated in pt care: history, MDM, physical Personally performed: exam, history, MDM, supervision of care Care discussed with: Medical Student Procedures: n/a Results interpretation: Verified all documentation Verification and Attestation of Medical Student E/M Service A medical student performed and documented this service in my presence. I reviewed and verified all information documented by the medical student and made modifications to such information, when appropriate. I personally performed the physical exam and medical decision making. Katelynn Poon, Jun 08, 2023,21:11 MOUNIKA ROBERTS Jun 08, 2023 17:14 KATELYNN POON DO Jun 08, 2023 21:11
[2023-06-08] MEDS: HYDROcodone/ACETAMINOPHEN 5 MG/325 MG TABLET PO PRN ×2 (17:32→23:37)
[2023-06-08] MEDS: RT-ALBUTEROL SULF 2.5 MG/3 ML PRE-MIX VIAL INH SCH (19:36)
[2023-06-08 19:58] VITALS: BP 117/68
[2023-06-08] MEDS: SENNA W/DOCUSATE (SENOKOT S) TABLET PO SCH (21:00)
[2023-06-08] MEDS: DOCUSATE SODIUM 100 MG CAPSULE PO SCH (21:00)
[2023-06-08] MEDS: SERTRALINE 50 MG (ZOLOFT) TABLET PO SCH (21:00)
[2023-06-08] MEDS: polyethylene glycoL POWDER 17 GM (MIRALAX) PACK PO SCH (21:00)
[2023-06-08] MEDS: guaiFENesin 600 MG TABLET PO SCH (21:00)
[2023-06-08] MEDS: MELATONIN 3 MG TABLET PO PRN (23:35)
[2023-06-09 05:12] LABS: BASOPHILS % (AUTO) 0 % (0-10); EOSINOPHILS # (AUTO) 0.6 10^3/uL (0.0-0.3); EOSINOPHILS % (AUTO) 6 % (0-10); HEMATOCRIT 42 % (35-52); HEMOGLOBIN 13.7 g/dL (11.5-16.0); LYMPHOCYTES # (AUTO) 3.1 10^3/uL (1.0-4.0); LYMPHOCYTES % (AUTO) 31 % (12-44); MEAN CORPUSCULAR HEMOGLOBIN 30 pg (25-34); MEAN CORPUSCULAR HGB CONC 32 g/dL (32-36); MEAN CORPUSCULAR VOLUME 93 fL (80-99); MONOCYTES # (AUTO) 0.7 10^3/uL (0.0-1.0); MONOCYTES % (AUTO) 7 % (0-12); NEUTROPHILS # (AUTO) 5.7 10^3/uL (1.8-7.8); NEUTROPHILS % (AUTO) 55 % (42-75); PLATELET COUNT 233 10^3/uL (130-400); WHITE BLOOD COUNT 10.2 10^3/uL (4.3-11.0)
[2023-06-09 05:31] LABS: ALBUMIN 3.3 GM/DL (3.2-4.5); BILIRUBIN,TOTAL 0.9 MG/DL (0.1-1.0); CALCIUM 9.1 MG/DL (8.5-10.1); CREATININE SERUM 0.84 MG/DL (0.60-1.30); POTASSIUM 4.5 MMOL/L (3.6-5.0); TOTAL PROTEIN 5.6 GM/DL (6.4-8.2)
--- NOTE | 2023-06-09 06:53 | PM&R Progress Note ---
Subjective HPI/CC On Admission Date Seen by Provider: Jun 09, 2023 Time Seen by Provider: 10:00 Subjective/Events-last exam 06/09/2023: Pt doing well No falls No pain Improved overall Still very weak Weaning O2 Review of Systems General: Fatigue, Malaise Pulmonary: Dyspnea Objective Exam Vital Signs Vital Signs Date Time Temp Pulse Resp B/P (MAP) Pulse Ox O2 Delivery O2 Flow Rate FiO2 06/09/23 15:49 High Flow N/C 7.00 06/09/23 15:37 90 06/09/23 07:32 36.4 51 16 124/58 (80) Capillary Refill : General Appearance: No Apparent Distress, WD/WN, Chronically ill HEENT: PERRL/EOMI, Normal ENT Inspection, Pharynx Normal Neck: Full Range of Motion, Normal Inspection, Non Tender, Supple, Carotid Bruit Respiratory: Chest Non Tender, No Accessory Muscle Use, No Respiratory Distress, Decreased Breath Sounds Cardiovascular: Regular Rate, Rhythm, No Edema, No Gallop, No JVD, No Murmur, Normal Peripheral Pulses Gastrointestinal: Normal Bowel Sounds, No Organomegaly, No Pulsatile Mass, Non Tender, Soft Back: Normal Inspection, No CVA Tenderness, No Vertebral Tenderness Extremity: Normal Capillary Refill, Normal Inspection, Normal Range of Motion, Non Tender, No Calf Tenderness, No Pedal Edema Neurologic/Psychiatric: Alert, Oriented x3, Normal Mood/Affect, human resources hr generalist II-XII Norm as Tested, Abnormal Gait, Depressed Affect, Motor Weakness (Generalized 3/5) Skin: Normal Color, Warm/Dry Lymphatic: No Adenopathy Results/Procedures Lab Laboratory Tests 06/09/23 05:05 Patient resulted labs reviewed. FIM Transfers Therapy Code Descriptions/Definitions Functional [place] Measure: 0=Not Assessed/NA 4=Minimal Assistance 1=Total Assistance 5=Supervision or Setup 2=Maximal Assistance 6=Modified [place] 3=Moderate Assistance 7=Complete IndependenceSCALE: Activities may be completed with or without assistive devices. 6-Whaavqdzws-mgjymfg completes the activity by him/herself with no assistance from a helper. 5-Set-up or Clean-up Assistance-helper sets up or cleans up; patient completes activity. [place] assists only prior to or following the activity. 4-Supervision or Touching Assistance-helper provides verbal cues and/or touching/steadying and/or contact guard assistance as patient completes activity. Assistance may be provided throughout the activity or intermittently. 3-Partial/Moderate Assistance-helper does LESS THAN HALF the effort. [place] lifts, holds or supports trunk or limbs, but provides less than half the effort. 2-Substantial/Maximal Assistance-helper does MORE THAN HALF the effort. [place] lifts or holds trunk or limbs and provides more than half the effort. 1-Bvgwjmowx-lzfllq does ALL the effort. Patient does none of the effort to complete the activity. Or, the assistance of 2 or more helpers is required for the patient to complete the activity. If activity was not attempted, code reason: 7-Patient Refused. 9-Not Applicable-not attempted and the patient did not perform the activity before the current illness, exacerbation or injury. 10-Not Attempted due to Environmental Limitations-(lack of equipment, weather r estraints, etc.). 88-Not Attempted due to Medical Conditions or Safety Concerns. Roll Left to Right (QC): 4 (SBA ) Sit to Lying (QC): 4 (SBA ) Sit to Stand (QC): 4 (SBA ) Chair/Ryh-yv-Jxkvk Xfer(QC): 4 (SBA ) Car Transfer (QC): 4 (SBA ) Gait Training Does the Patient Walk?: Yes Walk 10 feet (QC): 4 (CGA) Walk 50 ft with 2 Turns(QC): 4 (CGA ) Walk 150 ft (QC): 88 (O2 dropped below 80% on 10L ) Walking 10ft/uneven surface-QC: 4 (CGA ) Gait Assistive Device: None Wheelchair Training Does the Pt Use a Wheelchair?: No Wheel 50 ft with 2 turns (QC): 9 Wheel 150 ft (QC): 9 Type of Wheelchair: N/A Stair Training #of Steps: 5 1 Step (curb) (QC): 4 (CGA ) 4 Steps (QC): 4 (CGA ) 12 Steps (QC): 88 Balance Picking up an Object (QC): 4 (CGA/SBA ) ADL-Treatment Eating (QC): 6 Oral Hygiene (QC): 4 Shower/Bathe Self (QC): 4 Upper Body Dressing (QC): 4 Lower Body Dressing (QC): 4 On/Off Footwear (QC): 4 Toileting Hygiene (QC): 4 Toilet Transfer (QC): 4 Assessment/Plan Assessment and Plan Assess & Plan/Chief Complaint Assessment Acute on chronic hypoxic respiratory failure & respiratory distress on 8 liters of oxygen s/p left lower lobe pneumonia s/p elevated lactic acid due to hypoxia & respiratory distress s/p Leukocytosis Pulmonary fibrosis h/o left humerus fracture following fall Hyperlipidemia Depression Vitamin D deficiency Fatty liver Pulmonary HTN on echocardiogram, 50-55mmHg Plan: Slowly decrease prednisone Slowly wean oxygen Aggressive rehab Monitor oxygen level 06/09/2023: Monitor closely Wean O2 and steroids (1) Respiratory failure (2) Pulmonary fibrosis ALYSHA POON DO Jun 09, 2023 06:53
--- NOTE | 2023-06-09 06:54 | Individualized Plan of Care ---
Individualized Plan of Care Rehab Nursing IPOC Order Admission Date Jun 08, 2023 at 13:06 Current Orders Orders Admission Order(Inpt,Obs,Sdc) (06/08/23 11:43) Vital Signs: Per Unit Policy ( 08,16,00 (06/08/23 11:43) Ramon Kelsey , (06/08/23 11:43) Sequential Compression Device [id number] (06/08/23 11:43) Agency Director-Inpt Rehab Con (06/08/23 11:43) Rehab Nursing Orders-Ipoc (06/08/23 11:43) Physical Therapy Rehab Orders (06/08/23 11:43) Occupational Therapy Rehab Ord (06/08/23 11:43) Speech Therapy Rehab Orders (06/08/23 11:43) Cbc With Automated Diff (06/09/23 06:00) Comprehensive Metabolic Panel (06/09/23 06:00) Precautions (Aru) (06/08/23 11:43) Weekly Weight WEEK (06/08/23 11:43) Rehab-Intensity Of Therapy (06/08/23 11:43) Initiate Admission Nursing Pro .admission (06/08/23 11:43) Alprazolam Tablet (Alprazolam Tablet) (06/08/23 11:45) Calcium Carbonate Chew Tablet (Calcium C (06/08/23 11:45) Diphenhydramine Tablet (Diphenhydramine (06/08/23 11:45) Docusate Sodium Capsule (Docusate Sodium (06/08/23 21:00) Docusate Sodium Capsule (Docusate Sodium (06/08/23 11:45) Bisacodyl Suppository (Bisacodyl Supposi (06/08/23 11:45) Lactulose Oral Solution (Enulose Oral So (06/08/23 11:45) Na Phos/Na Biphos Enema (Fleet Enema Thomas (06/08/23 11:45) Guaifenesin/Codeine Syrup (Robitussin Ac (06/08/23 11:45) Loperamide Tablet (Imodium Tablet) (06/08/23 11:45) Melatonin Tablet (Melatonin Tablet) (06/08/23 11:45) Polyethylene Glycol Powder Pkt (Miralax (06/08/23 21:00) Ondansetron Oral Dissolve Tab (Zofran (06/08/23 11:45) Senna S Tablet (Senokot S Tablet) (06/08/23 21:00) Acetaminophen Tablet (Acetaminophen Ta (06/08/23 11:45) Initiate Admission Nursing Pro .admission (06/08/23 11:43) General/Regular (06/08/23 Lunch) Admission Arrival Bed Request (06/08/23 13:06) Code/Resuscitation (06/08/23 13:25) Dietary Consult (06/08/23 13:43) Acetaminophen Tablet (Acetaminophen Ta (06/08/23 15:00) Albuterol Pre-Mix Nebs (Rt) (Albuterol (06/08/23 15:00) Albuterol Pre-Mix Nebs (Rt) (Albuterol (06/08/23 17:00) Alprazolam Tablet (Alprazolam Tablet) (06/08/23 15:00) Atorvastatin Tablet (Atorvastatin Tablet (06/09/23 09:00) Baclofen Tablet (Baclofen Tablet) (06/08/23 15:00) Cyanocobalamin Tablet (Cyanocobalamin Ta (06/09/23 09:00) Enoxaparin Injection (Enoxaparin Injecti (06/09/23 09:00) Fluconazole Tablet (Diflucan Tablet) (06/09/23 09:00) Guaifenesin Tablet (Mucinex Tablet) (06/08/23 21:00) Guaifenesin/Dm Syrup (Robitussin Dm Syru (06/08/23 15:00) Hydrocodone/Apap 5/325 Tablet (Hydrocod (06/08/23 15:00) Ibuprofen Tablet (Motrin Tablet) (06/08/23 15:00) Montelukast Tablet (Singulair Tablet) (06/09/23 09:00) Nystatin Oral Suspension (Mycostatin O (06/08/23 17:00) [place] 3 Capsule (Fish Oil Capsule) (06/09/23 09:00) Pantoprazole Tablet (Protonix Tablet) (06/09/23 09:00) Prednisone Tablet (Deltasone Tablet) (06/09/23 09:00) Sertraline Tablet (Zoloft Tablet) (06/08/23 21:00) Artifical Tears Ophth Solution (Artifica (06/08/23 15:30) Vitamin D3 Tablet (Vitamin D3 Tablet) (06/09/23 09:00) Lactobacillus Acidophilus Cap (Acidophil (06/08/23 17:00) Therapeutic Multivitamin Tab (Vitamins, (06/09/23 09:00) (Nf) Omeprazole (06/09/23 09:00) Ondansetron Injection (Zofran Injectio (06/08/23 15:30) Svn Small Volume Nebulizer (06/08/23 14:51) Svn Small Volume Nebulizer (06/08/23 14:51) Albuterol Pre-Mix Nebs (Rt) (Albuterol (06/08/23 19:00) Patient Visit (06/08/23 ) Pt Eval Moderate Complexity (06/08/23 ) Patient Visit (06/08/23 ) Functional Activities, Ea 15 (06/08/23 ) Heating Pad (06/09/23 11:52) Miconazole 2% Powder (Phytoplex Af 2% Po (06/09/23 21:00) Communication For Respiratory (06/09/23 12:18) Patient Visit (06/09/23 ) Exercise Therap, Ea 15 Min (06/09/23 ) Prednisone Tablet (Deltasone Tablet) (06/10/23 09:00) Rehab Nursing Orders: Ongoing Assess. of Function Status, Bladder Management, Bladder Scan, Bladder Training, Bowel Management, Bowel Training, Disease Management & Educaiton, DVT Prophylaxis, Fall Prevention, Fluid/Electrolyte/Nutrition Mgmt, Infection Prevention, Medication Management & Education, Management of Risks & Complications, Management of Skin Intergrity, Nutrition Management, Pain Management, Patient/Family Support, Safety Management Intensity of Therapy to be met Patient to be seen: Min.3h per day/5 of 7d PT IPOC Problem List: Activity Tolerance, Functional Strength, Safety, Balance, Gait, Transfer, Bed Mobility Treatment Plan: Continue Plan of Care Bed Mobility, Concurrent Therapy, Education, Functional Activity Wil, Functional Strength, Group Therapy, Gait, Safety, Therapeutic Exercise, Transfers Treatment Duration: Jun 22, 2023 Frequency: At least 5 of 7 days/Wk (IRF) Estimated Hrs Per Day: 2 hours per day OT IPOC Problems: Decreased Activ Tolerance, Impaired Self-Care Skills OT Treatment, Training and Edu: Yes Plan of Care: ADL Retraining, Concurrent Therapy, Functional Mobility, Group Exercise/Act as Ind, UE Funct Exercise/Act, UE Neuromus Re-Ed/Coord Treatment Duration: Jun 16, 2023 Frequency: At least 5 of 7 days/Wk (IRF) Estimated Hrs Per Day: [address] IPOC Speech Therapy Treatment Plan: Discontinue ST Treatment Duration: Jun 09, 2023 Frequency: Modified Program (IRF) Estimated Hrs Per Day: Other Agency Director/Case Mgmt Agency Director/Case Managemen: Discharge Planning Dietitian/Jacquard Loom [place] Dietitian/Jacquard Loom [place] to monitor nutritional status and make changes and/or recommendations as needed and work with speech pathology on dietary upgrades as the occur. Physician IPOC Medical Issues being managed closely and that require the 24 hour availability of a physician: Recent critical illness with ICU stay at [facility] on Vapotherm for 7 days until weaned down to 15L and decreased and maintained on 8L currently will be high risk for respiratory compromise given pulmonary fibrosis. Medical Issues: Bowel/Bladder Function, DVT Prophylaxis, Falls Precautions, Fluid/Electrolyte/Nutrition Balance, Infection Protection, Pain Management Brief Synthesis of Preadmission Screen, Post-Admission Evaluation, and Therapy Evaluations: PT OT will focus on regaining function while weaning down O2 and increasing stamina while ambulating and increasing stamina during ADL's in order to return home close to baseline Medical Prognosis: Good Anticipated Length of Stay: 7 days ALYSHA POON DO Jun 09, 2023 06:54
[2023-06-09] MEDS: DOCUSATE SODIUM 100 MG CAPSULE PO SCH ×2 (07:04→20:40)
[2023-06-09] MEDS: polyethylene glycoL POWDER 17 GM (MIRALAX) PACK PO SCH ×2 (07:05→20:40)
[2023-06-09] MEDS: SENNA W/DOCUSATE (SENOKOT S) TABLET PO SCH ×2 (07:05→20:40)
[2023-06-09 07:32] VITALS: BP 124/58
[2023-06-09] MEDS: RT-ALBUTEROL SULF 2.5 MG/3 ML PRE-MIX VIAL INH SCH ×4 (07:36→18:32)
[2023-06-09] MEDS: CYANOCOBALAMIN 1,000 MCG TABLET PO SCH (08:36)
[2023-06-09] MEDS: MONTELUKAST 10 MG (SINGULAIR) TAB PO SCH (08:36)
[2023-06-09] MEDS: ENOXAPARIN 40 MG/0.4 ML SYRINGE SQ SCH (08:36)
[2023-06-09] MEDS: guaiFENesin 600 MG TABLET PO SCH ×2 (08:36→20:39)
[2023-06-09] MEDS: LACTOBACILLUS ACIDOPHILUS (PROBIOTIC) CAPSULE PO SCH ×4 (08:36→20:39)
[2023-06-09] MEDS: VITAMIN D3 125 MCG (5,000 UNITS) TABLET PO SCH (08:36)
[2023-06-09] MEDS: PANTOPRAZOLE 40 MG (PROTONIX) TAB PO SCH (08:36)
[2023-06-09] MEDS: MULTIVIT W/MINERALS TAB (THERAGRAN M) PO SCH (08:36)
[2023-06-09] MEDS: NYSTATIN ORAL SUSP 5 ML UDC PO SCH ×4 (08:36→20:40)
[2023-06-09] MEDS: HYDROcodone/ACETAMINOPHEN 5 MG/325 MG TABLET PO PRN ×2 (08:37→22:35)
[2023-06-09] MEDS: OMEGA 3 (FISH OIL) 1000 MG CAP PO SCH (08:37)
[2023-06-09] MEDS ORDERED: NON-FORMULARY MEDICATION 1 EA EA (Omeprazole 40 MG) PO SCH (09:00)
[2023-06-09] MEDS ORDERED: predniSONE 20 MG TAB PO SCH (09:00)
--- NOTE | 2023-06-09 09:33 | Occupational Ther Daily Note ---
OT Current Status-Daily Note Subjective Up in recliner resting, completed breakfast, reports slept from 11:30pm to 5 am Pain Comment: Nursing in room on arrival w/ meds, see RN report for pain Mental Status/Objective Patient Orientation: Person, Place, Time, Situation Attachments: Oxygen (8-10 L NC) ADL-Treatment Completed hand washing following NuStep and functional activity at washing station in ARU unit w/supervision, completed again following toileting BM. Supervision use of 02 tank on [employer] Therapy Code Descriptions/Definitions Functional [place] Measure: 0=Not Assessed/NA 4=Minimal Assistance 1=Total Assistance 5=Supervision or Setup 2=Maximal Assistance 6=Modified [place] 3=Moderate Assistance 7=Complete IndependenceSCALE: Activities may be completed with or without assistive devices. 9-Bqjoeobrbw-zqrltch completes the activity by him/herself with no assistance fr om a helper. 5-Set-up or Clean-up Assistance-helper sets up or cleans up; patient completes activity. [place] assists only prior to or following the activity. 4-Supervision or Touching Assistance-helper provides verbal cues and/or touching/steadying and/or contact guard assistance as patient completes activity. Assistance may be provided throughout the activity or intermittently. 3-Partial/Moderate Assistance-helper does LESS THAN HALF the effort. [place] lifts, holds or supports trunk or limbs, but provides less than half the effort. 2-Substantial/Maximal Assistance-helper does MORE THAN HALF the effort. [place] lifts or holds trunk or limbs and provides more than half the effort. 1-Tsxjaahzi-auwbld does ALL the effort. Patient does none of the effort to complete the activity. Or, the assistance of 2 or more helpers is required for the patient to complete the activity. If activity was not attempted, code reason: 7-Patient Refused. 9-Not Applicable-not attempted and the patient did not perform the activity before the current illness, exacerbation or injury. 10-Not Attempted due to Environmental Limitations-(lack of equipment, weather restraints, etc.). 88-Not Attempted due to Medical Conditions or Safety Concerns. Oral Hygiene (QC): 6 (per patient report) Toileting Hygiene (QC): 6 Toilet Transfer (QC): 6 at completion of session, pain reports to RN at 6/10 coughing muscles Other Treatment Nustep seat 7, arms 8 3 min @ load level 5 02 77% 8 liters, one minute recovery to 91% using 8 count breathe in and exhale. Reduced load to 3 increase 02 L NC 10 3 minute interval 84%.1 minute recovery. Reduced SPM to 35 3 minute interval 10 LNC load 3, 91% 02 Kitchen tasks for making hot tea, use of patient fridge and orientation to environment Education OT Patient Education: Correct positioning, Energy conservation, Exercise program, Modified ADL techniques, Progress toward Goal/Update tx plan, Purpose of tx/functional activities, Reviewed precautions, Rehab process, Safety issues, Transfer techniques, Use of adapted equipment Teaching Recipient: Patient Teaching Methods: Demonstration, Discussion Response to Teaching: Return Demonstration OT Short Term Goals Short Term Goals Time Frame: Jun 12, 2023 Eatin Oral hygiene: 6 Putting on/taking off footwear: 6 OT Finish Molder Goals Fpc Goals Time Frame: Jun 16, 2023 Acute change in mental status: 0 Inattention: 0 Disorganized thinkin Altered level of consciousness: 0 Eating (QC): 6 Oral Hygiene (QC): 6 Toileting Hygiene (QC): 6 Shower/Bathe Self (QC): 6 Upper Body Dressing (QC): 6 Lower Body Dressing (QC): 6 On/Off Footwear (QC): 6 1=Demonstrate adherence to instructed precautions during ADL tasks. 2=Patient will verbalize/demonstrate understanding of assistive devices/modifications for ADL. 3=Patient will improve strength/tolerance for activity to enable patient to perform ADL's. OT Education/Plan Problem List/Assessment Assessment: Decreased Activ Tolerance, Impaired Self-Care Skills Discharge Recommendations Plan/Recommendations: Continue POC Treatment Plan/Plan of Care Treatment,Training & Education: Yes Patient would benefit from OT for education, treatment and training to promote independence in ADL's, mobility, safety and/or upper extremity function for ADL's. Plan of Care: ADL Retraining, Concurrent Therapy, Functional Mobility, Group Exercise/Act as Ind, UE Funct Exercise/Act, UE Neuromus Re-Ed/Coord Treatment Duration: Jun 16, 2023 Frequency: At least 5 of 7 days/Wk (IRF) Estimated Hrs Per Day: 1 hour per day Agreement: Yes Rehab Potential: Good returned to bed resting , all needs met. NC connected an tank has 30 minutes, placed tank in corner. Time Start Time: 08:30 Stop Time: 09:35 DATE: Jun 09, 2023 Total Time Billed (hr/min): 65 Billed Treatment Time ADL 15 minutes, EX 40 min, FA 10 min NENA CAMARA OT Jun 09, 2023 09:33
--- NOTE | 2023-06-09 11:36 | Physical Therapy Daily Note ---
PT Daily Note-Current Subjective Pt in bed upon arrival and good for therapy. pt stated she was tired after OT this morning. pt was left in therapy gym for group with O2 and Ot present. all needs were met this day. Pain Section J - Health Conditions 1. Rarely or not at all 2. Occasionally 3. Frequently 4. Almost constantly 8. Unable to answer Pain Effect on Sleep: 3 Pain Interference with Therapy: 3 Pain Interference w/Day-to-Day: 3 Mental Status Patient Orientation: Person, Place, Time, Situation Transfers SCALE: Activities may be completed with or without assistive devices. 3-Cwlsnqtdlq-yvthnse completes the activity by him/herself with no assistance from a helper. 5-Set-up or Clean-up Assistance-helper sets up or cleans up; patient completes activity. [place] assists only prior to or following the activity. 4-Supervision or Touching Assistance-helper provides verbal cues and/or touching/steadying and/or contact guard assistance as patient completes activity. Assistance may be provided throughout the activity or intermittently. 3-Partial/Moderate Assistance-helper does LESS THAN HALF the effort. [place] lifts, holds or supports trunk or limbs, but provides less than half the effort. 2-Substantial/Maximal Assistance-helper does MORE THAN HALF the effort. [place] lifts or holds trunk or limbs and provides more than half the effort. 0-Xujkvidha-ycidpr does ALL the effort. Patient does none of the effort to complete the activity. Or, the assistance of 2 or more helpers is required for the patient to complete the activity. If activity was not attempted, code reason: 7-Patient Refused. 9-Not Applicable-not attempted and the patient did not perform the activity before the current illness, exacerbation or injury. 10-Not Attempted due to Environmental Limitations-(lack of equipment, weather restraints, etc.). 88-Not Attempted due to Medical Conditions or Safety Concerns. Weight Bearing Right Lower Extremity: Right Full Weight Bearing Left Lower Extremity: Left Full Weight Bearing Exercises Supine Ex: Bridging, Ankle pumps, Quad Set, Glut sets, Heel Slides, Short Arc Quads, Straight leg raise, Hip abd/add Treatments Pt preformed ther-ex in all planes of motion with BLE for 2 mins with no resistance. pt would preform an exercise for 2 mins to increase cardio and strengthen and then O2 was checked pt would range from 82-85 after 2 min there- ex. pt would rest and preformed pursed lip breathing and would return to 90-91. Assessment Current Status: Good Progress PT Supervisor Powdered [employer] Goals Supervisor Powdered [employer] Goals PT Fdc Goals Time Frame: Jun 22, 2023 Roll Left & Right (QC): 6 (Pt will be Ind with functional mobility, in order to safely return home with spouse. ) Sit to Lying (QC): 6 (Pt will be Ind with functional mobility, in order to safely return home with spouse. ) Lying-Sitting on Side/Bed(QC): 6 (Pt will be Ind with functional mobility, in order to safely return home with spouse. ) Sit to Stand (QC): 6 (Pt will be Ind with functional mobility, in order to safely return home with spouse. ) Chair/Nkk-fc-Btdbv Xfer(QC): 6 (Pt will be Ind with functional mobility, in order to safely return home with spouse. ) Toilet Transfer (QC): 6 (Pt will be Ind with functional mobility, in order to safely return home with spouse. ) Car Transfer (QC): 6 (Pt will be Ind with functional mobility, in order to safely return home with spouse. ) Does the Patient Walk: Yes Walk 10 feet (QC): 6 (Pt will be Ind with functional mobility, in order to safely return home with spouse. ) Walk 50ft with 2 Turns (QC): 6 (Pt will be Ind with functional mobility, in order to safely return home with spouse. ) Walk 150 ft (QC): 6 (Pt will be Ind with functional mobility, in order to safely return home with spouse. ) Walking 10ft on Uneven Surface: 6 (Pt will be Ind with functional mobility, in order to safely return home with spouse. ) 1 Step (curb) (QC): 6 (Pt will be Ind with functional mobility, in order to safely return home with spouse. ) 4 Steps (QC): 6 (Pt will be Ind with functional mobility, in order to safely return home with spouse. ) 12 Steps (QC): 6 (Pt will be Ind with functional mobility, in order to safely return home with spouse. ) Picking up an Object (QC): 6 (Pt will be Ind with functional mobility, in order to safely return home with spouse. ) Does the Pt use WC or Scooter?: No Wheel 50 feet with 2 turns (QC: 9 Type: N/A Wheel 150 feet: 9 Type: N/A PT Plan Treatment/Plan Treatment Plan: Continue Plan of Care Treatment Plan: Bed Mobility, Concurrent Therapy, Education, Functional Activity Wil, Functional Strength, Group Therapy, Gait, Safety, Therapeutic Exercise, Transfers Treatment Duration: Jun 22, 2023 Frequency: At least 5 of 7 days/Wk (IRF) Estimated Hrs Per Day: 2 hours per day Patient and/or Family Agrees t: Yes Time Time In: 1000 Time Out: 1100 DATE: Jun 09, 2023 Total Billed Treatment Time: 60 Total Billed Treatment 1 EX x 4 Anusha Benavidez FILE CLERK Jun 09, 2023 11:36
[2023-06-09] MEDS: MICONAZOLE 2% POWDER (DESENEX AF) 90 GM TOP SCH (12:40)
--- NOTE | 2023-06-09 13:20 | Therapy Group Daily Note ---
Therapy Daily Group Note Patient Education Topic Home Safety, Other List Below (ARU description/ AE for safety) Exercises LE Seated Exercise, UE Exercise Session Ratio (pt:therapist): 4:1 Goal of Session: Education on ARU Expectations, Home Safety Strategies, UE/LE Strengthing, Use of Adaptive Equipment Goal Met for this Session: Yes Pt Benefit of Group: Contributions to Others, F/U Use of Strategies @Home, Increased Functional Safety, Increased Functional Strength, Improved Cognition, Recognition of Peers, Socialization Other/Notes Pt ambulated to therapy gym for OT group. Group consisted of introductions (name), socialization, B UE/LE seated exercises, education on AE and safety for home environment. Pt introduced self appropriately and actively listened to peers. Pt able to complete B UE/LE strengthening using light resistance th eraband, modifications due to SOA. Pt verbalized understanding of educational topics by giving own strategies and personal experiences. After therapy, pt sitting in recliner eating lunch. Call light/phone in reach. All needs met in room. Start Time: 11:00 Stop Time: 12:15 Total Billed Treatment Time: 75 Total Billed Treatment 1-GRP BARON MATAMOROS Jun 09, 2023 13:20
[2023-06-09] MEDS: BACLOFEN 10 MG TABLET PO PRN ×2 (13:47→19:58)
[2023-06-09] MEDS: ALPRAZolam 0.5 MG TABLET PO PRN ×2 (14:41→22:35)
[2023-06-09 19:45] VITALS: BP 114/67
[2023-06-09] MEDS: SERTRALINE 50 MG (ZOLOFT) TABLET PO SCH (20:40)
[2023-06-09] MEDS: MELATONIN 3 MG TABLET PO PRN (22:35)
[2023-06-10] MEDS: BACLOFEN 10 MG TABLET PO PRN ×2 (05:29→20:25)
--- NOTE | 2023-06-10 06:36 | PM&R Progress Note ---
Subjective HPI/CC On Admission Date Seen by Provider: Jun 10, 2023 Time Seen by Provider: 11:00 Subjective/Events-last exam 06/10/2023: Doing well Walking well Hypoxia does occur but she is compensating Decreasing prednisone slowly since she is on 10mg during day every day per [facility] Pulmonary fibrosis recs 06/09/2023: Pt doing well No falls No pain Improved overall Still very weak Weaning O2 Review of Systems General: Fatigue, Malaise Pulmonary: Dyspnea Objective Exam Vital Signs Vital Signs Date Time Temp Pulse Resp B/P (MAP) Pulse Ox O2 Delivery O2 Flow Rate FiO2 06/10/23 11:48 90 High Flow N/C 8.00 06/10/23 08:50 36.5 71 20 110/56 (74) Capillary Refill : General Appearance: No Apparent Distress, WD/WN, Chronically ill HEENT: PERRL/EOMI, Normal ENT Inspection, Pharynx Normal Neck: Full Range of Motion, Normal Inspection, Non Tender, Supple, Carotid Bruit Respiratory: Chest Non Tender, No Accessory Muscle Use, No Respiratory Distress, Decreased Breath Sounds Cardiovascular: Regular Rate, Rhythm, No Edema, No Gallop, No JVD, No Murmur, Normal Peripheral Pulses Gastrointestinal: Normal Bowel Sounds, No Organomegaly, No Pulsatile Mass, Non Tender, Soft Back: Normal Inspection, No CVA Tenderness, No Vertebral Tenderness Extremity: Normal Capillary Refill, Normal Inspection, Normal Range of Motion, Non Tender, No Calf Tenderness, No Pedal Edema Neurologic/Psychiatric: Alert, Oriented x3, Normal Mood/Affect, food science technician II-XII Norm as Tested, Abnormal Gait, Depressed Affect, Motor Weakness (Generalized 3/5) Skin: Normal Color, Warm/Dry Lymphatic: No Adenopathy Results/Procedures Lab Patient resulted labs reviewed. FIM Transfers Therapy Code Descriptions/Definitions Functional [place] Measure: 0=Not Assessed/NA 4=Minimal Assistance 1=Total Assistance 5=Supervision or Setup 2=Maximal Assistance 6=Modified [place] 3=Moderate Assistance 7=Complete IndependenceSCALE: Activities may be completed with or without assistive devices. 7-Fvusmewbwq-vpvivsl completes the activity by him/herself with no assistance from a helper. 5-Set-up or Clean-up Assistance-helper sets up or cleans up; patient completes activity. [place] assists only prior to or following the activity. 4-Supervision or Touching Assistance-helper provides verbal cues and/or touching/steadying and/or contact guard assistance as patient completes activity. Assistance may be provided throughout the activity or intermittently. 3-Partial/Moderate Assistance-helper does LESS THAN HALF the effort. [place] lifts, holds or supports trunk or limbs, but provides less than half the effort. 2-Substantial/Maximal Assistance-helper does MORE THAN HALF the effort. [place] lifts or holds trunk or limbs and provides more than half the effort. 3-Airbiwqtf-fzaycp does ALL the effort. Patient does none of the effort to complete the activity. Or, the assistance of 2 or more helpers is required for the patient to complete the activity. If activity was not attempted, code reason: 7-Patient Refused. 9-Not Applicable-not attempted and the patient did not perform the activity before the current illness, exacerbation or injury. 10-Not Attempted due to Environmental Limitations-(lack of equipment, weather restraints, etc.). 88-Not Attempted due to Medical Conditions or Safety Concerns. Roll Left to Right (QC): 4 (SBA ) Sit to Lying (QC): 4 (SBA ) Sit to Stand (QC): 4 (SBA ) Chair/Aoo-xh-Roufp Xfer(QC): 4 (SBA ) Car Transfer (QC): 4 (SBA ) Gait Training Does the Patient Walk?: Yes Walk 10 feet (QC): 4 (CGA) Walk 50 ft with 2 Turns(QC): 4 (CGA ) Walk 150 ft (QC): 88 (O2 dropped below 80% on 10L ) Walking 10ft/uneven surface-QC: 4 (CGA ) Gait Assistive Device: None Wheelchair Training Does the Pt Use a Wheelchair?: No Wheel 50 ft with 2 turns (QC): 9 Wheel 150 ft (QC): 9 Type of Wheelchair: N/A Stair Training #of Steps: 5 1 Step (curb) (QC): 4 (CGA ) 4 Steps (QC): 4 (CGA ) 12 Steps (QC): 88 Balance Picking up an Object (QC): 4 (CGA/SBA ) ADL-Treatment Eating (QC): 6 Oral Hygiene (QC): 6 (per patient report) Shower/Bathe Self (QC): 4 Upper Body Dressing (QC): 4 Lower Body Dressing (QC): 4 On/Off Footwear (QC): 4 Toileting Hygiene (QC): 6 Toilet Transfer (QC): 6 Assessment/Plan Assessment and Plan Assess & Plan/Chief Complaint Assessment Acute on chronic hypoxic respiratory failure & respiratory distress on 8 liters of oxygen s/p left lower lobe pneumonia s/p elevated lactic acid due to hypoxia & respiratory distress s/p Leukocytosis Pulmonary fibrosis h/o left humerus fracture following fall Hyperlipidemia Depression Vitamin D deficiency Fatty liver Pulmonary HTN on echocardiogram, 50-55mmHg Plan: Slowly decrease prednisone Slowly wean oxygen Aggressive rehab Monitor oxygen level 06/09/2023: Monitor closely Wean O2 and steroids 06/10/2023: Monitor closely Monitor O2 Contemplate restarting Revatio for PHTN (1) Respiratory failure (2) Pulmonary fibrosis ALYSHA POON DO Jun 10, 2023 06:36
[2023-06-10] MEDS: RT-ALBUTEROL SULF 2.5 MG/3 ML PRE-MIX VIAL INH SCH ×4 (07:57→16:58)
[2023-06-10] MEDS: LACTOBACILLUS ACIDOPHILUS (PROBIOTIC) CAPSULE PO SCH ×4 (08:36→20:25)
[2023-06-10] MEDS: VITAMIN D3 125 MCG (5,000 UNITS) TABLET PO SCH (08:37)
[2023-06-10] MEDS: MULTIVIT W/MINERALS TAB (THERAGRAN M) PO SCH (08:37)
[2023-06-10] MEDS: guaiFENesin 600 MG TABLET PO SCH ×2 (08:37→20:25)
[2023-06-10] MEDS: MONTELUKAST 10 MG (SINGULAIR) TAB PO SCH (08:37)
[2023-06-10] MEDS: CYANOCOBALAMIN 1,000 MCG TABLET PO SCH (08:37)
[2023-06-10] MEDS: OMEGA 3 (FISH OIL) 1000 MG CAP PO SCH (08:37)
[2023-06-10] MEDS: PANTOPRAZOLE 40 MG (PROTONIX) TAB PO SCH (08:38)
[2023-06-10] MEDS: ENOXAPARIN 40 MG/0.4 ML SYRINGE SQ SCH (08:38)
[2023-06-10] MEDS: polyethylene glycoL POWDER 17 GM (MIRALAX) PACK PO SCH ×2 (08:39→20:34)
[2023-06-10] MEDS: DOCUSATE SODIUM 100 MG CAPSULE PO SCH ×2 (08:39→20:34)
[2023-06-10] MEDS: predniSONE 20 MG TAB PO SCH (08:39)
[2023-06-10] MEDS: SENNA W/DOCUSATE (SENOKOT S) TABLET PO SCH ×2 (08:40→20:34)
[2023-06-10 08:50] VITALS: BP 110/56
[2023-06-10] MEDS: NYSTATIN ORAL SUSP 5 ML UDC PO SCH ×4 (09:01→20:25)
[2023-06-10] MEDS: MICONAZOLE 2% POWDER (DESENEX AF) 90 GM TOP SCH ×2 (09:01→21:47)
[2023-06-10] MEDS: HYDROcodone/ACETAMINOPHEN 5 MG/325 MG TABLET PO PRN ×2 (13:54→21:48)
[2023-06-10] MEDS: ALPRAZolam 0.5 MG TABLET PO PRN ×2 (17:46→21:48)
[2023-06-10 20:10] VITALS: BP 131/61
[2023-06-10] MEDS: SERTRALINE 50 MG (ZOLOFT) TABLET PO SCH (20:25)
[2023-06-10] MEDS: MELATONIN 3 MG TABLET PO PRN (21:48)
[2023-06-11] MEDS: BACLOFEN 10 MG TABLET PO PRN ×2 (04:05→20:22)
[2023-06-11] MEDS: HYDROcodone/ACETAMINOPHEN 5 MG/325 MG TABLET PO PRN ×3 (06:12→21:52)
[2023-06-11] MEDS: RT-ALBUTEROL SULF 2.5 MG/3 ML PRE-MIX VIAL INH SCH ×4 (06:36→18:32)
--- NOTE | 2023-06-11 07:04 | PM&R Progress Note ---
Subjective HPI/CC On Admission Date Seen by Provider: Jun 11, 2023 Time Seen by Provider: 12:00 Subjective/Events-last exam 06/11/2023: Doing very well Significant hypoxia occurs with exertion Down to 7 L of oxygen at rest She will continue to gain as time passes Cannot tolerate Revatio due to orthostatic hypotension and falls 06/10/2023: Doing well Walking well Hypoxia does occur but she is compensating Decreasing prednisone slowly since she is on 10mg during day every day per [facility] Pulmonary fibrosis recs 06/09/2023: Pt doing well No falls No pain Improved overall Still very weak Weaning O2 Review of Systems General: Fatigue, Malaise Objective Exam Vital Signs Vital Signs Date Time Temp Pulse Resp B/P (MAP) Pulse Ox O2 Delivery O2 Flow Rate FiO2 06/11/23 10:23 92 High Flow N/C 7.00 06/11/23 07:57 36.4 56 20 149/65 (93) Capillary Refill : General Appearance: No Apparent Distress, WD/WN, Chronically ill HEENT: PERRL/EOMI, Normal ENT Inspection, Pharynx Normal Neck: Full Range of Motion, Normal Inspection, Non Tender, Supple, Carotid Bruit Respiratory: Chest Non Tender, No Accessory Muscle Use, No Respiratory Distr ess, Decreased Breath Sounds Cardiovascular: Regular Rate, Rhythm, No Edema, No Gallop, No JVD, No Murmur, Normal Peripheral Pulses Gastrointestinal: Normal Bowel Sounds, No Organomegaly, No Pulsatile Mass, Non Tender, Soft Back: Normal Inspection, No CVA Tenderness, No Vertebral Tenderness Extremity: Normal Capillary Refill, Normal Inspection, Normal Range of Motion, Non Tender, No Calf Tenderness, No Pedal Edema Neurologic/Psychiatric: Alert, Oriented x3, Normal Mood/Affect, optical instrument inspector II-XII Norm as Tested, Abnormal Gait, Depressed Affect, Motor Weakness Skin: Normal Color, Warm/Dry Lymphatic: No Adenopathy Results/Procedures Lab Patient resulted labs reviewed. FIM Transfers Therapy Code Descriptions/Definitions Functional [place] Measure: 0=Not Assessed/NA 4=Minimal Assistance 1=Total Assistance 5=Supervision or Setup 2=Maximal Assistance 6=Modified [place] 3=Moderate Assistance 7=Complete IndependenceSCALE: Activities may be completed with or without assistive devices. 4-Xywfqraxbo-rfjpkqr completes the activity by him/herself with no assistance from a helper. 5-Set-up or Clean-up Assistance-helper sets up or cleans up; patient completes activity. [place] assists only prior to or following the activity. 4-Supervision or Touching Assistance-helper provides verbal cues and/or touching/steadying and/or contact guard assistance as patient completes activity. Assistance may be provided throughout the activity or intermittently. 3-Partial/Moderate Assistance-helper does LESS THAN HALF the effort. [place] lifts, holds or supports trunk or limbs, but provides less than half the effort. 2-Substantial/Maximal Assistance-helper does MORE THAN HALF the effort. [place] lifts or holds trunk or limbs and provides more than half the effort. 4-Ggqowwyar-keeofc does ALL the effort. Patient does none of the effort to complete the activity. Or, the assistance of 2 or more helpers is required for the patient to complete the activity. If activity was not attempted, code reason: 7-Patient Refused. 9-Not Applicable-not attempted and the patient did not perform the activity before the current illness, exacerbation or injury. 10-Not Attempted due to Environmental Limitations-(lack of equipment, weather restraints, etc.). 88-Not Attempted due to Medical Conditions or Safety Concerns. Roll Left to Right (QC): 4 (SBA ) Sit to Lying (QC): 4 (SBA ) Sit to Stand (QC): 4 (SBA ) Chair/Wjs-tn-Iohxj Xfer(QC): 4 (SBA ) Car Transfer (QC): 4 (SBA ) Gait Training Does the Patient Walk?: Yes Walk 10 feet (QC): 4 (CGA) Walk 50 ft with 2 Turns(QC): 4 (CGA ) Walk 150 ft (QC): 88 (O2 dropped below 80% on 10L ) Walking 10ft/uneven surface-QC: 4 (CGA ) Gait Assistive Device: None Wheelchair Training Does the Pt Use a Wheelchair?: No Wheel 50 ft with 2 turns (QC): 9 Wheel 150 ft (QC): 9 Type of Wheelchair: N/A Stair Training #of Steps: 5 1 Step (curb) (QC): 4 (CGA ) 4 Steps (QC): 4 (CGA ) 12 Steps (QC): 88 Balance Picking up an Object (QC): 4 (CGA/SBA ) ADL-Treatment Eating (QC): 6 Oral Hygiene (QC): 6 (per patient report) Shower/Bathe Self (QC): 4 Upper Body Dressing (QC): 4 Lower Body Dressing (QC): 4 On/Off Footwear (QC): 4 Toileting Hygiene (QC): 6 Toilet Transfer (QC): 6 Assessment/Plan Assessment and Plan Assess & Plan/Chief Complaint Assessment Acute on chronic hypoxic respiratory failure & respiratory distress on 8 liters of oxygen s/p left lower lobe pneumonia s/p elevated lactic acid due to hypoxia & respiratory distress s/p Leukocytosis Pulmonary fibrosis h/o left humerus fracture following fall Hyperlipidemia Depression Vitamin D deficiency Fatty liver Pulmonary HTN on echocardiogram, 50-55mmHg Plan: Slowly decrease prednisone Slowly wean oxygen Aggressive rehab Monitor oxygen level 06/09/2023: Monitor closely Wean O2 and steroids 06/10/2023: Monitor closely Monitor O2 Contemplate restarting Revatio for PHTN 06/11/2023: Not an option to start Revatio due to orthostatic hypotension and falls while on that medication (1) Respiratory failure (2) Pulmonary fibrosis ALYSHA POON DO Jun 11, 2023 07:04
[2023-06-11 07:57] VITALS: BP 149/65
[2023-06-11] MEDS: polyethylene glycoL POWDER 17 GM (MIRALAX) PACK PO SCH ×2 (08:06→20:45)
[2023-06-11] MEDS: NYSTATIN ORAL SUSP 5 ML UDC PO SCH ×4 (08:10→20:22)
[2023-06-11] MEDS: MONTELUKAST 10 MG (SINGULAIR) TAB PO SCH (08:10)
[2023-06-11] MEDS: LACTOBACILLUS ACIDOPHILUS (PROBIOTIC) CAPSULE PO SCH ×4 (08:10→20:22)
[2023-06-11] MEDS: MULTIVIT W/MINERALS TAB (THERAGRAN M) PO SCH (08:10)
[2023-06-11] MEDS: OMEGA 3 (FISH OIL) 1000 MG CAP PO SCH (08:10)
[2023-06-11] MEDS: ENOXAPARIN 40 MG/0.4 ML SYRINGE SQ SCH (08:10)
[2023-06-11] MEDS: VITAMIN D3 125 MCG (5,000 UNITS) TABLET PO SCH (08:10)
[2023-06-11] MEDS: PANTOPRAZOLE 40 MG (PROTONIX) TAB PO SCH (08:11)
[2023-06-11] MEDS: CYANOCOBALAMIN 1,000 MCG TABLET PO SCH (08:11)
[2023-06-11] MEDS: guaiFENesin 600 MG TABLET PO SCH ×2 (08:11→20:22)
[2023-06-11] MEDS: predniSONE 20 MG TAB PO SCH (08:12)
[2023-06-11] MEDS: MICONAZOLE 2% POWDER (DESENEX AF) 90 GM TOP SCH ×2 (08:13→20:22)
[2023-06-11] MEDS: DOCUSATE SODIUM 100 MG CAPSULE PO SCH ×2 (10:09→20:45)
[2023-06-11] MEDS: SENNA W/DOCUSATE (SENOKOT S) TABLET PO SCH ×2 (10:09→20:45)
[2023-06-11] MEDS: ALPRAZolam 0.5 MG TABLET PO PRN ×2 (17:13→20:22)
[2023-06-11 19:45] VITALS: BP 105/55
[2023-06-11] MEDS: MELATONIN 3 MG TABLET PO PRN (21:52)
[2023-06-11] MEDS: SERTRALINE 50 MG (ZOLOFT) TABLET PO SCH (21:52)
[2023-06-12] MEDS: ALPRAZolam 0.5 MG TABLET PO PRN ×5 (00:14→21:14)
[2023-06-12] MEDS: BACLOFEN 10 MG TABLET PO PRN ×2 (00:14→10:14)
[2023-06-12 05:24] LABS: BASOPHILS % (AUTO) 0 % (0-10); EOSINOPHILS # (AUTO) 0.1 10^3/uL (0.0-0.3); EOSINOPHILS % (AUTO) 1 % (0-10); HEMATOCRIT 41 % (35-52); HEMOGLOBIN 13.4 g/dL (11.5-16.0); LYMPHOCYTES # (AUTO) 2.6 10^3/uL (1.0-4.0); LYMPHOCYTES % (AUTO) 22 % (12-44); MEAN CORPUSCULAR HEMOGLOBIN 30 pg (25-34); MEAN CORPUSCULAR HGB CONC 32 g/dL (32-36); MEAN CORPUSCULAR VOLUME 92 fL (80-99); MEAN PLATELET VOLUME 10.8 fL (9.0-12.2); MONOCYTES # (AUTO) 0.8 10^3/uL (0.0-1.0); MONOCYTES % (AUTO) 7 % (0-12); NEUTROPHILS # (AUTO) 7.9 10^3/uL (1.8-7.8); NEUTROPHILS % (AUTO) 69 % (42-75); PLATELET COUNT 214 10^3/uL (130-400); WHITE BLOOD COUNT 11.5 10^3/uL (4.3-11.0)
[2023-06-12] MEDS: HYDROcodone/ACETAMINOPHEN 5 MG/325 MG TABLET PO PRN ×3 (05:31→21:14)
--- NOTE | 2023-06-12 05:48 | PM&R Progress Note ---
Subjective HPI/CC On Admission Date Seen by Provider: Jun 12, 2023 Time Seen by Provider: 11:30 Subjective/Events-last exam 06/12/2023: Doing well No pain reported No falls O2 maintained DC planned for tomorrow 06/11/2023: Doing very well Significant hypoxia occurs with exertion Down to 7 L of oxygen at rest She will continue to gain as time passes Cannot tolerate Revatio due to orthostatic hypotension and falls 06/10/2023: Doing well Walking well Hypoxia does occur but she is compensating Decreasing prednisone slowly since she is on 10mg during day every day per [facility] Pulmonary fibrosis recs 06/09/2023: Pt doing well No falls No pain Improved overall Still very weak Weaning O2 Review of Systems General: Fatigue, Malaise Pulmonary: Dyspnea Objective Exam Vital Signs Vital Signs Date Time Temp Pulse Resp B/P (MAP) Pulse Ox O2 Delivery O2 Flow Rate FiO2 06/12/23 20:55 36.2 70 20 125/59 (81) 94 Nasal Cannula 7.00 Capillary Refill : General Appearance: No Apparent Distress, WD/WN, Chronically ill HEENT: PERRL/EOMI, Normal ENT Inspection, Pharynx Normal Neck: Full Range of Motion, Normal Inspection, Non Tender, Supple, Carotid Bruit Respiratory: Chest Non Tender, No Accessory Muscle Use, No Respiratory Distress, Decreased Breath Sounds Cardiovascular: Regular Rate, Rhythm, No Edema, No Gallop, No JVD, No Murmur, Normal Peripheral Pulses Gastrointestinal: Normal Bowel Sounds, No Organomegaly, No Pulsatile Mass, Non Tender, Soft Back: Normal Inspection, No CVA Tenderness, No Vertebral Tenderness Extremity: Normal Capillary Refill, Normal Inspection, Normal Range of Motion, Non Tender, No Calf Tenderness, No Pedal Edema Neurologic/Psychiatric: Alert, Oriented x3, Normal Mood/Affect, military technology specialist II-XII Norm as Tested, Abnormal Gait, Depressed Affect, Motor Weakness Skin: Normal Color, Warm/Dry Lymphatic: No Adenopathy Results/Procedures Lab Laboratory Tests 06/12/23 05:02 Patient resulted labs reviewed. FIM Transfers Therapy Code Descriptions/Definitions Functional [place] Measure: 0=Not Assessed/NA 4=Minimal Assistance 1=Total Assistance 5=Supervision or Setup 2=Maximal Assistance 6=Modified [place] 3=Moderate Assistance 7=Complete IndependenceSCALE: Activities may be completed with or without assistive devices. 4-Natqsavjkd-drfwtkj completes the activity by him/herself with no assistance from a helper. 5-Set-up or Clean-up Assistance-helper sets up or cleans up; patient completes activity. [place] assists only prior to or following the activity. 4-Supervision or Touching Assistance-helper provides verbal cues and/or touching/steadying and/or contact guard assistance as patient completes activity. Assistance may be provided throughout the activity or intermittently. 3-Partial/Moderate Assistance-helper does LESS THAN HALF the effort. [place] lifts, holds or supports trunk or limbs, but provides less than half the effort. 2-Substantial/Maximal Assistance-helper does MORE THAN HALF the effort. [place] lifts or holds trunk or limbs and provides more than half the effort. 8-Nlnuuvbin-oztsrk does ALL the effort. Patient does none of the effort to complete the activity. Or, the assistance of 2 or more helpers is required for the patient to complete the activity. If activity was not attempted, code reason: 7-Patient Refused. 9-Not Applicable-not attempted and the patient did not perform the activity before the current illness, exacerbation or injury. 10-Not Attempted due to Environmental Limitations-(lack of equipment, weather restraints, etc.). 88-Not Attempted due to Medical Conditions or Safety Concerns. Roll Left to Right (QC): 4 (SBA ) Sit to Lying (QC): 4 (SBA ) Sit to Stand (QC): 4 (SBA ) Chair/Uhy-to-Zkdau Xfer(QC): 4 (SBA ) Car Transfer (QC): 4 (SBA ) Gait Training Does the Patient Walk?: Yes Walk 10 feet (QC): 4 (CGA) Walk 50 ft with 2 Turns(QC): 4 (CGA ) Walk 150 ft (QC): 88 (O2 dropped below 80% on 10L ) Walking 10ft/uneven surface-QC: 4 (CGA ) Gait Assistive Device: None Wheelchair Training Does the Pt Use a Wheelchair?: No Wheel 50 ft with 2 turns (QC): 9 Wheel 150 ft (QC): 9 Type of Wheelchair: N/A Stair Training #of Steps: 5 1 Step (curb) (QC): 4 (CGA ) 4 Steps (QC): 4 (CGA ) 12 Steps (QC): 88 Balance Picking up an Object (QC): 4 (CGA/SBA ) ADL-Treatment Eating (QC): 6 Oral Hygiene (QC): 6 (per patient report) Shower/Bathe Self (QC): 4 Upper Body Dressing (QC): 4 Lower Body Dressing (QC): 4 On/Off Footwear (QC): 4 Toileting Hygiene (QC): 6 Toilet Transfer (QC): 6 Assessment/Plan Assessment and Plan Assess & Plan/Chief Complaint Assessment Acute on chronic hypoxic respiratory failure & respiratory distress on 8 liters of oxygen s/p left lower lobe pneumonia s/p elevated lactic acid due to hypoxia & respiratory distress s/p Leukocytosis Pulmonary fibrosis h/o left humerus fracture following fall Hyperlipidemia Depression Vitamin D deficiency Fatty liver Pulmonary HTN on echocardiogram, 50-55mmHg Plan: Slowly decrease prednisone Slowly wean oxygen Aggressive rehab Monitor oxygen level 06/09/2023: Monitor closely Wean O2 and steroids 06/10/2023: Monitor closely Monitor O2 Contemplate restarting Revatio for PHTN 06/11/2023: Not an option to start Revatio due to orthostatic hypotension and falls while on that medication 06/12/2023: DC home tomorrow (1) Respiratory failure (2) Pulmonary fibrosis ALYSHA POON DO Jun 12, 2023 05:48
[2023-06-12 05:52] LABS: ALBUMIN 3.4 GM/DL (3.2-4.5); BILIRUBIN,TOTAL 0.8 MG/DL (0.1-1.0); CALCIUM 8.9 MG/DL (8.5-10.1); CREATININE SERUM 0.86 MG/DL (0.60-1.30); POTASSIUM 3.9 MMOL/L (3.6-5.0); TOTAL PROTEIN 5.7 GM/DL (6.4-8.2)
[2023-06-12 06:49] VITALS: BP 139/63
[2023-06-12] MEDS: RT-ALBUTEROL SULF 2.5 MG/3 ML PRE-MIX VIAL INH SCH ×4 (07:01→19:52)
[2023-06-12] MEDS: MONTELUKAST 10 MG (SINGULAIR) TAB PO SCH (09:33)
[2023-06-12] MEDS: CYANOCOBALAMIN 1,000 MCG TABLET PO SCH (09:33)
[2023-06-12] MEDS: LACTOBACILLUS ACIDOPHILUS (PROBIOTIC) CAPSULE PO SCH ×4 (09:33→21:14)
[2023-06-12] MEDS: PANTOPRAZOLE 40 MG (PROTONIX) TAB PO SCH (09:33)
[2023-06-12] MEDS: OMEGA 3 (FISH OIL) 1000 MG CAP PO SCH (09:33)
[2023-06-12] MEDS: VITAMIN D3 125 MCG (5,000 UNITS) TABLET PO SCH (09:33)
[2023-06-12] MEDS: MULTIVIT W/MINERALS TAB (THERAGRAN M) PO SCH (09:33)
[2023-06-12] MEDS: guaiFENesin 600 MG TABLET PO SCH ×2 (09:34→21:14)
[2023-06-12] MEDS: ENOXAPARIN 40 MG/0.4 ML SYRINGE SQ SCH (09:34)
[2023-06-12] MEDS: predniSONE 20 MG TAB PO SCH (09:34)
[2023-06-12] MEDS: NYSTATIN ORAL SUSP 5 ML UDC PO SCH ×4 (09:34→21:14)
[2023-06-12] MEDS: MICONAZOLE 2% POWDER (DESENEX AF) 90 GM TOP SCH ×2 (09:35→21:15)
[2023-06-12] MEDS: SENNA W/DOCUSATE (SENOKOT S) TABLET PO SCH ×2 (10:16→21:14)
[2023-06-12] MEDS: polyethylene glycoL POWDER 17 GM (MIRALAX) PACK PO SCH ×2 (10:16→21:14)
[2023-06-12] MEDS: DOCUSATE SODIUM 100 MG CAPSULE PO SCH ×2 (10:16→21:15)
--- NOTE | 2023-06-12 10:27 | Physical Therapy Daily Note ---
PT Daily Note-Current Subjective Pt standing at sink working w/OT upon arrival. Pt agrees to PT/OT co-treat due to decreased activity silvio. & increased need for O2. Pain Location: Left Location Body Site: Side Pain Description: Stabbing Comment: Reports occasional pain wrapping around ribs w/stabbing on L side, not rate Section J - Health Conditions 1. Rarely or not at all 2. Occasionally 3. Frequently 4. Almost constantly 8. Unable to answer Pain Effect on Sleep: 2 Pain Interference with Therapy: 2 Pain Interference w/Day-to-Day: 2 Mental Status Patient Orientation: Person, Place, Time, Situation Attachments: Oxygen (10L during exertion, 7L in room) Transfers SCALE: Activities may be completed with or without assistive devices. 8-Qileuusfhj-vzuvsbf completes the activity by him/herself with no assistance from a helper. 5-Set-up or Clean-up Assistance-helper sets up or cleans up; patient completes activity. [place] assists only prior to or following the activity. 4-Supervision or Touching Assistance-helper provides verbal cues and/or touching/steadying and/or contact guard assistance as patient completes activity. Assistance may be provided throughout the activity or intermittently. 3-Partial/Moderate Assistance-helper does LESS THAN HALF the effort. [place] lifts, holds or supports trunk or limbs, but provides less than half the effort. 2-Substantial/Maximal Assistance-helper does MORE THAN HALF the effort. [place] lifts or holds trunk or limbs and provides more than half the effort. 3-Hceelxjqw-qiyrbz does ALL the effort. Patient does none of the effort to complete the activity. Or, the assistance of 2 or more helpers is required for the patient to complete the activity. If activity was not attempted, code reason: 7-Patient Refused. 9-Not Applicable-not attempted and the patient did not perform the activity before the current illness, exacerbation or injury. 10-Not Attempted due to Environmental Limitations-(lack of equipment, weather restraints, etc.). 88-Not Attempted due to Medical Conditions or Safety Concerns. Roll Left & Right (QC): 6 Sit to Lying (QC): 6 Lying to Sitting/Side of Bed(Q: 6 Sit to Stand (QC): 6 Chair/Lvu-pr-Svlxy Xfer(QC): 6 Toilet Transfer (QC): 6 Car Transfer (QC): 6 Weight Bearing Right Lower Extremity: Right Full Weight Bearing Left Lower Extremity: Left Full Weight Bearing Gait Training Does the Patient Walk?: Yes Distance: 1,200' Walk 10 feet (QC): 6 Walk 50 ft with 2 Turns(QC): 6 Walk 150 ft (QC): 6 Walking 10ft/uneven surface-QC: 6 Gait Assistive Device: None Wheelchair Training Does the Pt Use a Wheelchair?: No Wheel 50 ft with 2 turns (QC): 9 Wheel 150 ft (QC): 9 Stair Training Stair Training: Handrails/: 1 handrail #of Steps: 12 1 Step (curb) (QC): 6 4 Steps (QC): 6 12 Steps (QC): 6 Stairs: Pattern: Reciprocal Balance Picking up an Object (QC): 6 Treatments Pt completes QC scoring items listed above including practice of proper/safe tub TF utilizing hand hold. Pt discussed will use hand hold and Sp will be present for TF into tub to use shower chair. O2 monitored throughout tx, RB taken as needed. Pt returns to room at end of tx to rest Supine in bed. All needs met, call light in hand & Nurse present. Assessment Current Status: Good Progress Pt demonstrates high functioning ability to complete tasks only limitation continues to be decrease of O2 w/activity. Pt is cognitive of this fact and feels when O2 is dropping and needs to take RB. Pt's O2 occasionally drops to upper 70's w/extended ambulation but this will be farther than pt needs to complete for personal household distance currently. PT Optical Engineering Technician Goals Intermediate Goals PT Optical Engineering Technician Goals Time Frame: Jun 22, 2023 Roll Left & Right (QC): 6 (Pt will be Ind with functional mobility, in order to safely return home with spouse. ) Sit to Lying (QC): 6 (Pt will be Ind with functional mobility, in order to safely return home with spouse. ) Lying-Sitting on Side/Bed(QC): 6 (Pt will be Ind with functional mobility, in order to safely return home with spouse. ) Sit to Stand (QC): 6 (Pt will be Ind with functional mobility, in order to sa kuldip return home with spouse. ) Chair/Ias-go-Tkzkb Xfer(QC): 6 (Pt will be Ind with functional mobility, in order to safely return home with spouse. ) Toilet Transfer (QC): 6 (Pt will be Ind with functional mobility, in order to safely return home with spouse. ) Car Transfer (QC): 6 (Pt will be Ind with functional mobility, in order to safely return home with spouse. ) Does the Patient Walk: Yes Walk 10 feet (QC): 6 (Pt will be Ind with functional mobility, in order to safely return home with spouse. ) Walk 50ft with 2 Turns (QC): 6 (Pt will be Ind with functional mobility, in order to safely return home with spouse. ) Walk 150 ft (QC): 6 (Pt will be Ind with functional mobility, in order to safely return home with spouse. ) Walking 10ft on Uneven Surface: 6 (Pt will be Ind with functional mobility, in order to safely return home with spouse. ) 1 Step (curb) (QC): 6 (Pt will be Ind with functional mobility, in order to safely return home with spouse. ) 4 Steps (QC): 6 (Pt will be Ind with functional mobility, in order to safely return home with spouse. ) 12 Steps (QC): 6 (Pt will be Ind with functional mobility, in order to safely return home with spouse. ) Picking up an Object (QC): 6 (Pt will be Ind with functional mobility, in order to safely return home with spouse. ) Does the Pt use WC or Scooter?: No Wheel 50 feet with 2 turns (QC: 9 Type: N/A Wheel 150 feet: 9 Type: N/A PT Plan Problem List Problem List: Activity Tolerance Treatment/Plan Treatment Plan: Continue Plan of Care Treatment Plan: Bed Mobility, Concurrent Therapy, Education, Functional Activity Wil, Functional Strength, Group Therapy, Gait, Safety, Therapeutic Exercise, Transfers Treatment Duration: Jun 22, 2023 Frequency: At least 5 of 7 days/Wk (IRF) Estimated Hrs Per Day: 2 hours per day Patient and/or Family Agrees t: Yes Safety Risks/Education Patient Education: Transfer Techniques, Correct Positioning, Safety Issues Teaching Recipient: Patient Teaching Methods: Demonstration, Discussion Response to Teaching: Verbalize Understanding, Return Demonstration Time Time In: 830 Time Out: 1000 DATE: Jun 12, 2023 Total Billed Treatment Time: 90 Total Billed Treatment Co-treat w/OT for 90m 1, GT x3 (40m) & FA x3 (50m) NAYELY GARCIA CHIMNEY BUILDER Jun 12, 2023 10:27
--- NOTE | 2023-06-12 10:52 | Occupational Ther Daily Note ---
OT Current Status-Daily Note Subjective Pt sitting in chair in room upon arrival, alert and cooperative, agreed to shower. [place] OT/PT ([id number]). Pt reports occasional pain wrapping around ribs w/stabbing on L side, not rate at this time, not limiting but required recovery breaks for pain. Mental Status/Objective Patient Orientation: Person, Place, Time, Situation Attachments: Oxygen ADL-Treatment Pt ambulated with no AE, independently, pt gathered clothing for shower and placed them into bathroom, manipulating oxygen cord well, and doffed clothing for shower. Pt completed shower independently. Pt mentioned feeling short on air, knowing when she is feeling low on oxygen. ARANGO checked oxygen was 70%, so arango turned O2 up to 10L during activity. Pt rested and arango checked O2 again, pt O2 back up to 97%. Pt completed upper, lower body dressing, as well as grooming and oral care while standing at sink, independently. Pt ambulated to EOB to have recovery break, and recheck O2, arango checked and o2 was 89%. PT arrived for co treat. Pt agrees to PT/OT co-treat due to decreased activity silvio. & increased need for O2. Pt ambulated to large shower room to pra ctice/demonstrate ability to properly and safely transfer in and out of tub shower, utlizing hand hold. Pt states spouse will be present for transfer in/out of shower, pt also has shower bench chair for energy conservation purposes for home use. Pt did well. after ARANGO demonstrated, pt able to complete transfer, independently. Pt returns to room at end of treatment to rest, Supine in bed. All needs met, call light in hand & Nurse present. Therapy Code Descriptions/Definitions Functional [place] Measure: 0=Not Assessed/NA 4=Minimal Assistance 1=Total Assistance 5=Supervision or Setup 2=Maximal Assistance 6=Modified [place] 3=Moderate Assistance 7=Complete IndependenceSCALE: Activities may be completed with or without assistive devices. 0-Dnyuxvlhdm-ccmezlk completes the activity by him/herself with no assistance from a helper. 5-Set-up or Clean-up Assistance-helper sets up or cleans up; patient completes activity. [place] assists only prior to or following the activity. 4-Supervision or Touching Assistance-helper provides verbal cues and/or touching/steadying and/or contact guard assistance as patient completes activity. Assistance may be provided throughout the activity or intermittently. 3-Partial/Moderate Assistance-helper does LESS THAN HALF the effort. [place] l ifts, holds or supports trunk or limbs, but provides less than half the effort. 2-Substantial/Maximal Assistance-helper does MORE THAN HALF the effort. [place] lifts or holds trunk or limbs and provides more than half the effort. 8-Qvhsxyotw-mxvygx does ALL the effort. Patient does none of the effort to complete the activity. Or, the assistance of 2 or more helpers is required for t he patient to complete the activity. If activity was not attempted, code reason: 7-Patient Refused. 9-Not Applicable-not attempted and the patient did not perform the activity before the current illness, exacerbation or injury. 10-Not Attempted due to Environmental Limitations-(lack of equipment, weather restraints, etc.). 88-Not Attempted due to Medical Conditions or Safety Concerns. Eating (QC): 6 Oral Hygiene (QC): 6 Bathing Location: L Arm, R Arm, L Upper Leg, R Upper Leg, L Lower Leg (including foot), R Lower Leg (including foot), Chest, Abdomen, Buttocks, Perineal Area Shower/Bathe Self (QC): 6 Upper Body Dressing (QC): 6 Lower Body Dressing (QC): 6 On/Off Footwear: 6 Toileting Hygiene (QC): 6 Toilet Transfer (QC): 6 Education OT Patient Education: Energy conservation, Modified ADL techniques, Progress toward Goal/Update tx plan, Purpose of tx/functional activities Teaching Recipient: Patient Teaching Methods: Demonstration, Discussion Response to Teaching: Verbalize Understanding, Return Demonstration BIMS CAM BIMS Expression of Ideas and Wants: Without Difficulty Understanding Verbal Content: Understands Brief Interview/Mental Status: Yes IRF ASIF BIMS: IRF ASIF BIMS Response (Comments) Value Repitition of Three Words Three 3 Recalls Socks Yes, No Cue Required 2 Recalls Blue Yes, No Cue Required 2 Recalls Bed Yes, No Cue Required 2 Year Correct 3 Month Accurate Within 5 Days 2 Day Correct 1 Total 15 Patient Normally Able to Recal: Current Session, Location of own room, Staff Names and faces, That he/she in a [facility] Should Staff Asses. Mental St.: No Memory/Recall Ability: Current Season, Location of Own Room, Staff Names and Faces, That He[facility]She in [facility] Mental Status Change/Baseline: 0 Inattention: 0 Disorganized thinkin Altered level of consciousness: 0 OT Short Term Goals Short Term Goals Time Frame: Jun 12, 2023 Eatin Oral hygiene: 6 Putting on/taking off footwear: 6 OT Trap Setter Goals Trap Setter Goals Time Frame: Jun 16, 2023 Acute change in mental status: 0 Inattention: 0 Disorganized thinkin Altered level of consciousness: 0 Eating (QC): 6 (met) Oral Hygiene (QC): 6 (met) Toileting Hygiene (QC): 6 (met) Shower/Bathe Self (QC): 6 (met) Upper Body Dressing (QC): 6 (met) Lower Body Dressing (QC): 6 (met) On/Off Footwear (QC): 6 (met) 1=Demonstrate adherence to instructed precautions during ADL tasks. 2=Patient will verbalize/demonstrate understanding of assistive devices/modifications for ADL. 3=Patient will improve strength/tolerance for activity to enable patient to perform ADL's. OT Education/Plan Problem List/Assessment Assessment: Decreased Activ Tolerance, Decreased UE Strength Discharge Recommendations Plan/Recommendations: Continue POC Treatment Plan/Plan of Care Patient would benefit from OT for education, treatment and training to promote independence in ADL's, mobility, safety and/or upper extremity function for ADL's. Plan of Care: ADL Retraining, Concurrent Therapy, Functional Mobility, Group Exercise/Act as Ind, UE Funct Exercise/Act, UE Neuromus Re-Ed/Coord Treatment Duration: Jun 16, 2023 Frequency: At least 5 of 7 days/Wk (IRF) Estimated Hrs Per Day: 1 hour per day Agreement: Yes Rehab Potential: Good Time Start Time: 08:00 Stop Time: 10:00 DATE: Jun 12, 2023 Total Time Billed (hr/min): 120 Billed Treatment Time 1 visit ADL 3 (45) FA (75) total individual (30) [place] (90) Christy Whitmore COTA Jun 12, 2023 10:52
[2023-06-12 20:55] VITALS: BP 125/59
[2023-06-12] MEDS: SERTRALINE 50 MG (ZOLOFT) TABLET PO SCH (21:13)
[2023-06-12] MEDS: MELATONIN 3 MG TABLET PO PRN (21:14)
[2023-06-12] MEDS ORDERED: SERT-413 PO (21:48)
[2023-06-12] MEDS ORDERED: GUAI600T43 PO (21:48)
[2023-06-12] MEDS ORDERED: ACHD5005 PO (21:48)
[2023-06-12] MEDS ORDERED: PANT40TA52 PO (21:48)
[2023-06-12] MEDS ORDERED: ALB0.5V INH ×2 (21:48)
[2023-06-12] MEDS ORDERED: MICO90PO TOP (21:48)
[2023-06-12] MEDS ORDERED: ALPR0.5T7 PO (21:48)
[2023-06-12] MEDS ORDERED: MONT-47 PO (21:48)
[2023-06-12] MEDS ORDERED: GFCD10B PO (21:48)
[2023-06-12] MEDS ORDERED: BACL10TA PO (21:48)
[2023-06-12] MEDS ORDERED: ATOR20TA66 PO (21:48)
[2023-06-12] MEDS ORDERED: PRD20T PO (21:48)
[2023-06-13] MEDS: BACLOFEN 10 MG TABLET PO PRN (05:47)
--- NOTE | 2023-06-13 06:24 | Discharge Summary ---
Diagnosis/Chief Complaint Date of Admission Jun 08, 2023 at 13:06 Date of Discharge Discharge Date: Jun 13, 2023 Discharge Diagnosis Assessment Acute on chronic hypoxic respiratory failure & respiratory distress on 8 liters of oxygen s/p left lower lobe pneumonia s/p elevated lactic acid due to hypoxia & respiratory distress s/p Leukocytosis Pulmonary fibrosis h/o left humerus fracture following fall Hyperlipidemia Depression Vitamin D deficiency Fatty liver Pulmonary HTN on echocardiogram, 50-55mmHg Plan: Slowly decrease prednisone Slowly wean oxygen Aggressive rehab Monitor oxygen level 06/09/2023: Monitor closely Wean O2 and steroids 06/10/2023: Monitor closely Monitor O2 Contemplate restarting Revatio for PHTN 06/11/2023: Not an option to start Revatio due to orthostatic hypotension and falls while on that medication 06/12/2023: DC home tomorrow (1) Respiratory failure (2) Pulmonary fibrosis Discharge Summary Discharge Physical Examination Allergies: Coded Allergies: Penicillins (Verified Allergy, Unknown, 06/08/23) Sulfa (Sulfonamide Antibiotics) (Verified Allergy, Unknown, 06/08/23) cephalexin (Verified Allergy, Unknown, 06/08/23) ciprofloxacin (Verified Allergy, Unknown, 06/08/23) clindamycin (Verified Allergy, Unknown, 06/08/23) demeclocycline (Verified Allergy, Unknown, 06/08/23) erythromycin base (Verified Allergy, Unknown, 06/08/23) lidocaine (Verified Allergy, Unknown, 06/08/23) meperidine (Verified Allergy, Unknown, 06/08/23) morphine (Verified Allergy, Unknown, 06/08/23) sulfamethoxazole (Verified Allergy, Unknown, 06/08/23) terbinafine (Verified Allergy, Unknown, 06/08/23) trimethoprim (Verified Allergy, Unknown, 06/08/23) Vitals & I&Os Vital Signs Date Time Temp Pulse Resp B/P (MAP) Pulse Ox O2 Delivery O2 Flow Rate FiO2 06/13/23 11:00 35.7 72 20 127/68 95 5.00 06/13/23 10:00 High Flow N/C General Appearance: Alert, Oriented X3, Cooperative Respiratory: Clear to Auscultation Cardiovascular: Regular Rate Psych/Mental Status: Mental Status NL Hospital Course Was the Problem List Reviewed?: Yes Hospital course: Patient had an uneventful hospital course after she was admitted from [facility] swing bed for additional structured rehab in order to gain enough strength and wean down oxygen and prednisone in order to go home. She had no ill effects during hospital course her labs remained stable her vitals remained stable she was able to wean down oxygen to 5 L at time of discharge and she was deemed stable for discharge. Labs (last 24 hrs) Laboratory Tests 06/09/23 05:05: White Blood Count 10.2, Red Blood Count 4.58, Hemoglobin 13.7, Hematocrit 42, Mean Corpuscular Volume 93, Mean Corpuscular Hemoglobin 30, Mean Corpuscular Hemoglobin Concent 32, Red Cell Distribution Width 12.7, Platelet Count 233, Mean Platelet Volume 10.0, Immature Granulocyte % (Auto) 1, Neutrophils (%) (Auto) 55, Lymphocytes (%) (Auto) 31, Monocytes (%) (Auto) 7, Eosinophils (%) (Auto) 6, Basophils (%) (Auto) 0, Neutrophils # (Auto) 5.7, Lymphocytes # (Auto) 3.1, Monocytes # (Auto) 0.7, Eosinophils # (Auto) 0.6H, Basophils # (Auto) 0.0, Immature Granulocyte # (Auto) 0.1, Sodium Level 141, Potassium Level 4.5, Chloride Level 103, Carbon Dioxide Level 28, Anion Gap 10, Blood Urea Nitrogen 12, Creatinine 0.84, Estimat Glomerular Filtration Rate 75, BUN/Creatinine Ratio 14, Glucose Level 91, Calcium Level 9.1, Corrected Calcium 9.7, Total Bilirubin 0.9, Aspartate Amino Transf (AST/SGOT) 38H, Alanine Aminotransferase (ALT/SGPT) 114H, Alkaline Phosphatase 89, Total Protein 5.6L, Albumin 3.3 06/12/23 05:02: White Blood Count 11.5H, Red Blood Count 4.47, Hemoglobin 13.4, Hematocrit 41, Mean Corpuscular Volume 92, Mean Corpuscular Hemoglobin 30, Mean Corpuscular Hemoglobin Concent 32, Red Cell Distribution Width 12.6, Platelet Count 214, Mean Platelet Volume 10.8, Immature Granulocyte % (Auto) 1, Neutrophils (%) (Auto) 69, Lymphocytes (%) (Auto) 22, Monocytes (%) (Auto) 7, Eosinophils (%) (Auto) 1, Basophils (%) (Auto) 0, Neutrophils # (Auto) 7.9H, Lymphocytes # (Auto) 2.6, Monocytes # (Auto) 0.8, Eosinophils # (Auto) 0.1, Basophils # (Auto) 0.0, Immature Granulocyte # (Auto) 0.1, Sodium Level 139, Potassium Level 3.9, Chloride Level 104, Carbon Dioxide Level 26, Anion Gap 9, Blood Urea Nitrogen 13, Creatinine 0.86, Estimat Glomerular Filtration Rate 73, BUN/Creatinine Ratio 15, Glucose Level 88, Calcium Level 8.9, Corrected Calcium 9.4, Total Bilirubin 0.8, Aspartate Amino Transf (AST/SGOT) 25, Alanine Aminotransferase (ALT/SGPT) 73H, Alkaline Phosphatase 84, Total Protein 5.7L, Albumin 3.4 Pending Labs Laboratory Tests 06/09/23 05:05: White Blood Count 10.2, Red Blood Count 4.58, Hemoglobin 13.7, Hematocrit 42, Mean Corpuscular Volume 93, Mean Corpuscular Hemoglobin 30, Mean Corpuscular Hemoglobin Concent 32, Red Cell Distribution Width 12.7, Platelet Count 233, Mean Platelet Volume 10.0, Immature Granulocyte % (Auto) 1, Neutrophils (%) (Auto) 55, Lymphocytes (%) (Auto) 31, Monocytes (%) (Auto) 7, Eosinophils (%) (Auto) 6, Basophils (%) (Auto) 0, Neutrophils # (Auto) 5.7, Lymphocytes # (Auto) 3.1, Monocytes # (Auto) 0.7, Eosinophils # (Auto) 0.6, Basophils # (Auto) 0.0, Immature Granulocyte # (Auto) 0.1, Sodium Level 141, Potassium Level 4.5, Chloride Level 103, Carbon Dioxide Level 28, Anion Gap 10, Blood Urea Nitrogen 12, Creatinine 0.84, Estimat Glomerular Filtration Rate 75, BUN/Creatinine Ratio 14, Glucose Level 91, Calcium Level 9.1, Corrected Calcium 9.7, Total Bilirubin 0.9, Aspartate Amino Transf (AST/SGOT) 38, Alanine Aminotransferase (ALT/SGPT) 114, Alkaline Phosphatase 89, Total Protein 5.6, Albumin 3.3 06/12/23 05:02: White Blood Count 11.5, Red Blood Count 4.47, Hemoglobin 13.4, Hematocrit 41, Mean Corpuscular Volume 92, Mean Corpuscular Hemoglobin 30, Mean Corpuscular Hemoglobin Concent 32, Red Cell Distribution Width 12.6, Platelet Count 214, Mean Platelet Volume 10.8, Immature Granulocyte % (Auto) 1, Neutrophils (%) (Auto) 69, Lymphocytes (%) (Auto) 22, Monocytes (%) (Auto) 7, Eosinophils (%) (Auto) 1, Basophils (%) (Auto) 0, Neutrophils # (Auto) 7.9, Lymphocytes # (Auto) 2.6, Monocytes # (Auto) 0.8, Eosinophils # (Auto) 0.1, Basophils # (Auto) 0.0, Immature Granulocyte # (Auto) 0.1, Sodium Level 139, Potassium Level 3.9, Chloride Level 104, Carbon Dioxide Level 26, Anion Gap 9, Blood Urea Nitrogen 13, Creatinine 0.86, Estimat Glomerular Filtration Rate 73, BUN/Creatinine Ratio 15, Glucose Level 88, Calcium Level 8.9, Corrected Calcium 9.4, Total Bilirubin 0.8, Aspartate Amino Transf (AST/SGOT) 25, Alanine Aminotransferase (ALT/SGPT) 73, Alkaline Phosphatase 84, Total Protein 5.7, Albumin 3.4 Discharge Home Medications: Active Scripts Active Lotrimin AF (Miconazole Nitrate) 2 % Powder 0 Gm TOP BID twive daily Prednisone 20 Mg Tab 50 Mg PO DAILY Take 50mg once daily for 5 days then 40mg once daily for 5 days then 30mg once daily for 5 days then 20mg once daily for 5 days then remain on 10mg daily Robitussin Ac (Codeine) Syrup (Guaifenesin/Codeine Phosphate) 10 Ml Syrp 10 Ml PO Q4H PRN Singulair (Montelukast Sodium) 10 Mg Tablet 10 Mg PO DAILY Sertraline HCl 50 Mg Tablet 50 Mg PO HS Pantoprazole Sodium 40 Mg Tablet.dr 40 Mg PO DAILY Mucinex (Guaifenesin) 600 Mg Tab.er.12h 600 Mg PO BID Atorvastatin Calcium 20 Mg Tablet 20 Mg PO DAILY Hydrocodone-Acetamin 5-325 mg (Hydrocodone/Acetaminophen) 5 Mg-325 Mg Tablet 1 Tab PO Q6H PRN Baclofen 10 Mg Tablet 10 Mg PO Q4H PRN Alprazolam 0.5 Mg Tablet 0.5 Mg PO EVERY 3 HOUR PRN Albuterol Sulfate 2.5 Mg/0.5 Ml Vial.neb 2.5 Mg INH Q4H PRN Albuterol Sulfate 2.5 Mg/0.5 Ml Vial.neb 2.5 Mg INH QID Reported Vitamin D3 (Cholecalciferol (Vitamin D3)) 125 Mcg (5000 Unit) Capsule 125 Mcg PO DAILY Vitamin B-12 (Cyanocobalamin (Vitamin B-12)) 1,000 Mcg Tablet 1,000 Mcg PO DAILY Multivitamin 1 Each Tablet 1 Each PO DAILY Ibuprofen 600 Mg Tablet 600 Mg PO Q6H PRN Guaifenesin Dm Syrup (Guaifenesin/Dextromethorphan) 100 Mg-10 Mg/5 Ml Syrup 5 Ml PO Q6H PRN Refresh Tears (Carboxymethylcellulose Sodium) 0.5 % Drops 1 Drop OU QID PRN Fish Oil 1,000 mg Softgel ([place]-3/Dha/Epa/Fish Oil) 1,000 Mg (120 Mg-180 Mg) Capsule 1,000 Mg PO DAILY Tylenol (Acetaminophen) 325 Mg Tablet 650 Mg PO Q6H PRN Instructions to patient/family Please see electronic discharge instructions given to patient. Diagnosis/Problems Diagnosis/Problems (1) Respiratory failure (2) Pulmonary fibrosis ALYSHA POON DO Jun 13, 2023 06:24
[2023-06-13] MEDS: RT-ALBUTEROL SULF 2.5 MG/3 ML PRE-MIX VIAL INH SCH ×2 (07:00→10:00)
[2023-06-13 07:02] VITALS: BP 122/65
[2023-06-13] MEDS: PANTOPRAZOLE 40 MG (PROTONIX) TAB PO SCH (08:21)
[2023-06-13] MEDS: LACTOBACILLUS ACIDOPHILUS (PROBIOTIC) CAPSULE PO SCH (08:21)
[2023-06-13] MEDS: MULTIVIT W/MINERALS TAB (THERAGRAN M) PO SCH (08:21)
[2023-06-13] MEDS: MONTELUKAST 10 MG (SINGULAIR) TAB PO SCH (08:21)
[2023-06-13] MEDS: CYANOCOBALAMIN 1,000 MCG TABLET PO SCH (08:21)
[2023-06-13] MEDS: VITAMIN D3 125 MCG (5,000 UNITS) TABLET PO SCH (08:21)
[2023-06-13] MEDS: guaiFENesin 600 MG TABLET PO SCH (08:22)
[2023-06-13] MEDS: NYSTATIN ORAL SUSP 5 ML UDC PO SCH (08:22)
[2023-06-13] MEDS: OMEGA 3 (FISH OIL) 1000 MG CAP PO SCH (08:22)
[2023-06-13] MEDS: predniSONE 20 MG TAB PO SCH (08:22)
[2023-06-13] MEDS: SENNA W/DOCUSATE (SENOKOT S) TABLET PO SCH (08:23)
[2023-06-13] MEDS: DOCUSATE SODIUM 100 MG CAPSULE PO SCH (08:23)
[2023-06-13] MEDS: ENOXAPARIN 40 MG/0.4 ML SYRINGE SQ SCH (08:23)
[2023-06-13] MEDS: polyethylene glycoL POWDER 17 GM (MIRALAX) PACK PO SCH (08:23)
[2023-06-13] MEDS: ALPRAZolam 0.5 MG TABLET PO PRN (08:36)
[2023-06-13] MEDS: HYDROcodone/ACETAMINOPHEN 5 MG/325 MG TABLET PO PRN (08:37)
[2023-06-13 11:00] VITALS: BP 127/68
--- NOTE | 2023-06-13 13:33 | Therapy Team Discharge Summary ---
Therapy Discharge Summary Discharge Recommendations Date of Discharge 06/13/2023 Therapy D/C Recommendations: Home w/ Family Support Physical Therapy Pt is a 68 y/o female that was admitted to the hospital on 05/28/23 for SOB and low O2 levels, and admitted to ARU on 06/08/23. At [facility], pt was Ind with no AD, driving, cooking, and cleaning. Pt was on 1-3L O2 at [facility]. Upon PT eval, pt was SBA for bed mobility and functional transfers and CGA for ambulation with no AD. However, pt was only able to ambulate ~ 50ft with no AD and was only able to negotiate 4 steps, secondary to O2 levels dropping into the 80s on 10L. PT focused on energy conservation, proper breathing techniques, B LE strength, endurance, walking, balance/safety, functional mobility, and Ind. Pt progressed well with PT and met all set goals, being Mod I with all aspects of functional mobility with no AD. Pt d/c from ARU on 06/13/23 to home with family and no other services at this time, secondary to pt request; D/C from PT at this time. Roll Left to Right (QC): 6 Sit to Lying (QC): 6 Lying to Sitting/Side of Bed(Q: 6 Sit to Stand (QC): 6 Chair/Dcb-gw-Owkfd Xfer(QC): 6 Toilet Transfer (QC): 6 Car Transfer (QC): 6 Does the Patient Walk: Yes Mode of Locomotion: Walk Anticipated Mode of Locomotion: Walk Walk 10 feet (QC): 6 Walk 50 ft with 2 Turns(QC): 6 Walk 150 ft (QC): 6 Walking 10ft on uneven surface: 6 Gait Assistive Device: None Does the Pt Use a Wheelchair: No Wheel 50 ft with 2 turns (QC): 9 Wheel 150 ft (QC): 9 Type of Wheelchair: N/A #of Steps: 12 1 Step (curb) (QC): 6 4 Steps (QC): 6 12 Steps (QC): 6 Balance Sitting Static: Normal Balance Sitting Dynamic: Normal Balance-Standing Static: Good Picking up an Object (QC): 6 Occupational Therapy Decreased Activ Tolerance, Decreased UE Strength Eating (QC): 6 Oral Hygiene (QC): 6 Shower/Bathe Self (QC): 6 Upper Body Dressing (QC): 6 Lower Body Dressing (QC): 6 On/Off Footwear (QC): 6 Toileting Hygiene (QC): 6 PT Studio Associate Goals Studio Associate Goals PT Residential Goals Time Frame: Jun 22, 2023 Roll Left to Right (QC): 6 (Pt will be Ind with functional mobility, in order to safely return home with spouse. ) Sit to Lying (QC): 6 (Pt will be Ind with functional mobility, in order to safely return home with spouse. ) Lying-Sitting on Side/Bed(QC): 6 (Pt will be Ind with functional mobility, in order to safely return home with spouse. ) Sit to Stand (QC): 6 (Pt will be Ind with functional mobility, in order to safely return home with spouse. ) Chair/Ncw-nk-Oevhs Xfer(QC): 6 (Pt will be Ind with functional mobility, in order to safely return home with spouse. ) Toilet/Commode Transfer (QC): 6 (Pt will be Ind with functional mobility, in order to safely return home with spouse. ) Car Transfer (QC): 6 (Pt will be Ind with functional mobility, in order to safely return home with spouse. ) Does the Patient Walk: Yes Walk 10 feet (QC): 6 (Pt will be Ind with functional mobility, in order to safely return home with spouse. ) Walk 10ft-Uneven Surface(QC): 6 (Pt will be Ind with functional mobility, in order to safely return home with spouse. ) Walk 50ft with 2 Turns (QC): 6 (Pt will be Ind with functional mobility, in order to safely return home with spouse. ) Walk 150 ft (QC): 6 (Pt will be Ind with functional mobility, in order to safely return home with spouse. ) Does the Pt use WC or Scooter?: No Wheel 50 feet with 2 turns (QC: 9 Type: N/A Wheel 150 feet: 9 Type: N/A 1 Step (curb) (QC): 6 (Pt will be Ind with functional mobility, in order to safely return home with spouse. ) 4 Steps (QC): 6 (Pt will be Ind with functional mobility, in order to safely return home with spouse. ) 12 Steps (QC): 6 (Pt will be Ind with functional mobility, in order to safely return home with spouse. ) Picking up an Object (QC): 6 (Pt will be Ind with functional mobility, in order to safely return home with spouse. ) OT Residential Goals Residential Goals Time Frame: Jun 16, 2023 Acute change in mental status: 0 Inattention: 0 Disorganized thinkin Altered level of consciousness: 0 Eating (QC): 6 (met) Oral Hygiene (QC): 6 (met) Toileting Hygiene (QC): 6 (met) Shower/Bathe Self (QC): 6 (met) Upper Body Dressing (QC): 6 (met) Lower Body Dressing (QC): 6 (met) On/Off Footwear (QC): 6 (met) 1=Demonstrate adherence to instructed precautions during ADL tasks. 2=Patient will verbalize/demonstrate understanding of assistive devices/modifications for ADL. 3=Patient will improve strength/tolerance for activity to enable patient to perform ADL's. CASSY VENCES PT Jun 13, 2023 13:33
[2023-06-13] MEDS: MICONAZOLE 2% POWDER (DESENEX AF) 90 GM TOP SCH (15:39)
--- NOTE | 2023-06-15 15:21 | Therapy Team Discharge Summary ---
Therapy Discharge Summary Discharge Recommendations Date of Discharge Jun 13, 2023 at 11:00 Therapy D/C Recommendations: Home w/ Family Support Physical Therapy Roll Left to Right (QC): 6 Sit to Lying (QC): 6 Lying to Sitting/Side of Bed(Q: 6 Sit to Stand (QC): 6 Chair/Iyl-ku-Yliis Xfer(QC): 6 Toilet Transfer (QC): 6 Car Transfer (QC): 6 Does the Patient Walk: Yes Mode of Locomotion: Walk Anticipated Mode of Locomotion: Walk Walk 10 feet (QC): 6 Walk 50 ft with 2 Turns(QC): 6 Walk 150 ft (QC): 6 Walking 10ft on uneven surface: 6 Gait Assistive Device: None Does the Pt Use a Wheelchair: No Wheel 50 ft with 2 turns (QC): 9 Wheel 150 ft (QC): 9 Type of Wheelchair: N/A #of Steps: 12 1 Step (curb) (QC): 6 4 Steps (QC): 6 12 Steps (QC): 6 Balance Sitting Static: Normal Balance Sitting Dynamic: Normal Balance-Standing Static: Good Picking up an Object (QC): 6 Occupational Therapy 68 y/o female that was admitted to the hospital on 05/28/23 for SOB and low O2 levels, and admitted to ARU on 06/08/23. At [facility], pt was Ind with no AD, driving, cooking, and cleaning. Pt was on 1-3L O2 at [facility]. Upon OT eval, pt was SBA for bed mobility and functional transfers and CGA for ambulation and ADLs with no AD. However, pt was only able to ambulate ~ 50ft with no AD and was only able to negotiate 4 steps, secondary to O2 levels dropping into the 80s on 10L. OT focused on energy conservation, proper breathing techniques, B UE strength, endurance, ADLs, balance/safety, functional mobility, and Ind. Pt progressed well with OT and met all set goals, being Mod I with all aspects of functional mobility with no AD. Pt d/c from ARU on 06/13/23 to home with family and no other services at this time, secondary to pt request Decreased Activ Tolerance, Decreased UE Strength Eating (QC): 6 Oral Hygiene (QC): 6 Shower/Bathe Self (QC): 6 Upper Body Dressing (QC): 6 Lower Body Dressing (QC): 6 On/Off Footwear (QC): 6 Toileting Hygiene (QC): 6 PT Senior Care Goals Senior Care Goals PT Senior Care Goals Time Frame: Jun 22, 2023 Roll Left to Right (QC): 6 (Pt will be Ind with functional mobility, in order to safely return home with spouse. ) Sit to Lying (QC): 6 (Pt will be Ind with functional mobility, in order to safely return home with spouse. ) Lying-Sitting on Side/Bed(QC): 6 (Pt will be Ind with functional mobility, in order to safely return home with spouse. ) Sit to Stand (QC): 6 (Pt will be Ind with functional mobility, in order to safely return home with spouse. ) Chair/Mtu-xn-Pffpu Xfer(QC): 6 (Pt will be Ind with functional mobility, in order to safely return home with spouse. ) Toilet/Commode Transfer (QC): 6 (Pt will be Ind with functional mobility, in order to safely return home with spouse. ) Car Transfer (QC): 6 (Pt will be Ind with functional mobility, in order to s afely return home with spouse. ) Does the Patient Walk: Yes Walk 10 feet (QC): 6 (Pt will be Ind with functional mobility, in order to safely return home with spouse. ) Walk 10ft-Uneven Surface(QC): 6 (Pt will be Ind with functional mobility, in order to safely return home with spouse. ) Walk 50ft with 2 Turns (QC): 6 (Pt will be Ind with functional mobility, in order to safely return home with spouse. ) Walk 150 ft (QC): 6 (Pt will be Ind with functional mobility, in order to safely return home with spouse. ) Does the Pt use WC or Scooter?: No Wheel 50 feet with 2 turns (QC: 9 Type: N/A Wheel 150 feet: 9 Type: N/A 1 Step (curb) (QC): 6 (Pt will be Ind with functional mobility, in order to safely return home with spouse. ) 4 Steps (QC): 6 (Pt will be Ind with functional mobility, in order to safely return home with spouse. ) 12 Steps (QC): 6 (Pt will be Ind with functional mobility, in order to safely return home with spouse. ) Picking up an Object (QC): 6 (Pt will be Ind with functional mobility, in order to safely return home with spouse. ) OT Senior Care Goals Senior Care Goals Time Frame: Jun 16, 2023 Acute change in mental status: 0 Inattention: 0 Disorganized thinkin Altered level of consciousness: 0 Eating (QC): 6 (met) Oral Hygiene (QC): 6 (met) Toileting Hygiene (QC): 6 (met) Shower/Bathe Self (QC): 6 (met) Upper Body Dressing (QC): 6 (met) Lower Body Dressing (QC): 6 (met) On/Off Footwear (QC): 6 (met) 1=Demonstrate adherence to instructed precautions during ADL tasks. 2=Patient will verbalize/demonstrate understanding of assistive devices/elijah fications for ADL. 3=Patient will improve strength/tolerance for activity to enable patient to perform ADL's. NENA CAMARA OT Jun 15, 2023 15:21
== END 2023-06-13 11:00 | disposition home or self-care (01) | DRG 196 ==
PROVIDERS: ADMIT Internal Medicine; ATTEND Internal Medicine
DX: J84.10 Pulmonary fibrosis, unspecified (principal); J96.21 Acute and chronic respiratory failure with hypoxia; I27.20 Pulmonary hypertension, unspecified; J43.9 Emphysema, unspecified; E78.00 Pure hypercholesterolemia, unspecified; K21.9 Gastro-esophageal reflux disease without esophagitis; F32.A Depression, unspecified; E55.9 Vitamin D deficiency, unspecified; K76.0 Fatty (change of) liver, not elsewhere classified; S42.302D Unspecified fracture of shaft of humerus, left arm, subsequent encounter for fracture with routine healing; M19.90 Unspecified osteoarthritis, unspecified site; Z99.81 Dependence on supplemental oxygen; Z87.891 Personal history of nicotine dependence; Z88.1 Allergy status to other antibiotic agents; Z88.5 Allergy status to narcotic agent; Z88.0 Allergy status to penicillin; Z88.2 Allergy status to sulfonamides; Z79.899 Other long term (current) drug therapy; Z79.52 Long term (current) use of systemic steroids; W19.XXXD Unspecified fall, subsequent encounter
CPT/HCPCS: 36415; 80053; 85025; 94640; 94664; 94760; 94761